=== PATIENT | female | born 1950 | race African-American/Black ===

== ENCOUNTER 2017-03-04 09:54 | Outpatient (CLI) | payer BC ==
[2017-03-04] MEDS ORDERED: Iopamidol 370 76% 50 ML VIAL FS ONE (13:11)
--- NOTE | 2017-03-04 13:46 | CT ---
ABDOMINAL CT WITH CONTRAST PELVIC CT WITH CONTRAST: Comparison: None. Correlation: Pelvic ultrasound 01-22-17. History: Distention of the abdomen. Abdominal pain and constipation. Technique: Abdomen and pelvic CT are performed with IV contrast. Enteric contrast was also administer ed. Coronal reformatted images are submitted for interpretation. FINDINGS: ABDOMEN CT: Lung bases are clear. Dependent atelectatic changes are noted. Heart size is within normal limits. Th ere is no significant pericardial fluid. The descending thoracic aorta and abdominal aorta have a nor mal caliber. No periaortic fat stranding. There appear to be enlarged pericardial lymph nodes. The largest lymph node measures 1.9 x 1.0 cm. There is perihepatic and perisplenic free fluid. Free fluid tracks along both pericolic gutters. Ther e appears to be omental feeding involving the left upper quadrant. There is no evidence of lymphadeno candis. There is hypoattenuation of the liver likely due to hepatic steatosis. The spleen, pancreas, and adre nal glands have appropriate enhancement. Symmetric enhancement of the kidneys. Bilaterally, no obstructive uropathy. No gastrohepatic, retrocrural or periportal lymphadenopathy. Gastric mucosa, duodenum and multiple normal caliber small bowel loops are noted. Normal ileocecal ju nction. Normal caliber appendix. No evidence of colonic obstruction. Limited evaluation of the left h emicolon due to inadequate oral contrast distention/opacification. PELVIC CT: There is a complex solid and cystic mass in the midline and right aspect of the pelvis. Areas of calc ification are identified. There is a well circumscribed hypodensity near the lower uterine segment. T he hypodensity near the lower uterine segment measures 3.9 x 3.5 cm. The pelvis/right adnexal mass me asures at least 13.2 x 10 cm. There is a small amount of free fluid in the pelvis. No lymphadenopathy. There are no lytic or blastic lesions in the osseous structures. IMPRESSION: 1. Complex echo texture mass involving the pelvis. Etiology of this mass is uncertain but is presumed to be ovarian. There is evidence of free fluid in the pelvis. Evidence of omental seeding. There is concern for ovarian malignancy, until proven otherwise. 2. Hepatic steatosis. 3. Nonspecific but enlarged pericardial lymph nodes. POS: [facility]
== END 2017-03-04 09:55 | disposition home or self-care (01) ==
LOC: CT 09:54
PROVIDERS: ATTEND Student in an Organized Health Care Education/Training Program
DX: R10.2 Pelvic and perineal pain (principal); R14.0 Abdominal distension (gaseous); R19.00 Intra-abdominal and pelvic swelling, mass and lump, unspecified site; K76.0 Fatty (change of) liver, not elsewhere classified; R59.0 Localized enlarged lymph nodes
CPT/HCPCS: 74177

== ENCOUNTER 2017-03-25 11:39 | Outpatient (CLI) | payer BC ==
[2017-03-25 12:23] LABS: #Basophils 0.1 thou/uL (0.0-0.2); #Eosinphils 0.2 thou/uL (0.0-0.7); #Lymphocytes 2.1 thou/uL (1.20-3.40); #Monocytes 0.7 thou/uL (0.11-0.59); #Neutrophils 4.2 thou/uL (1.40-6.50); %Basophils 1.2 % (0.0-1.0); %Eosinophils 2.6 % (0.0-10.0); %Monocytes 9.5 % (0.0-10.0); %Neutrophils 57.7 % (42.0-75.0); Hemoglobin 13.6 g/dL (12.0-16.0); Mean Corpuscular HGB CONC 32.4 g/dL (32.0-36.0); Mean Corpuscular Hemoglobin 26.6 pg (27.0-31.0); Mean Corpuscular Volume 81.9 fl (81.0-99.0); Mean Platelet Volume 7.8 fL (7.4-10.4); Platelet Count 460 thou/uL (130-400); RBC Distribution Width 14.1 % (11.5-14.5); Red Blood Cell (RBC) Count 5.11 mill/uL (4.20-5.40); White Blood Cell (WBC) Count 7.3 thou/uL (4.8-10.8)
[2017-03-25 15:18] LABS: Anion Gap 13 mmol/L (10-20); BUN (Urea Nitrogen) 16 mg/dL (9.8-20.1); Calc. Creatinine Clearance 0 mL/min (70-130); Calcium 9.6 mg/dL (7.8-10.44); Carbon Dioxide 27 mmol/L (23-31); Chloride 102 mmol/L (98-107); Estimated GFR-MDRD 73; Glucose 144 mg/dL (80-115); Potassium 3.4 mmol/L (3.5-5.1); Sodium 139 mmol/L (136-145)
--- NOTE | 2017-04-03 19:28 | EKG ---
Test Reason : Blood Pressure : / mmHG Vent. Rate : 082 BPM Atrial Rate : 082 BPM P-R Int : 142 ms QRS Dur : 092 ms QT Int : 364 ms P-R-T Axes : 043 042 -38 degrees QTc Int : 425 ms Normal sinus rhythm Cannot rule out Anterior infarct , age undetermined T wave abnormality, consider inferolateral ischemia Abnormal ECG No previous ECGs available Confirmed by SUSANNE BROWN (2) on 04/03/2017 7:28:23 PM Referred By: LIVIA Confirmed By:SUSANNE BROWN
== END 2017-03-25 11:40 | disposition home or self-care (01) ==
LOC: LABBT 11:39
PROVIDERS: ATTEND Surgery
DX: Z01.812 Encounter for preprocedural laboratory examination (principal); C56.9 Malignant neoplasm of unspecified ovary
CPT/HCPCS: 80048; 85025; 93005; 93010

== ENCOUNTER 2017-03-27 06:19 | Day surgery (SDC) | payer BC ==
[2017-03-25 11:45] VITALS: BMI 36.0
[2017-03-27] MEDS ORDERED: CEFAZOLIN/Water 2 GM/20 ML SYRINGE ONE (06:55)
[2017-03-27] MEDS ORDERED: Fentanyl 100 MCG/2 ML VIAL ONE (06:57)
[2017-03-27] MEDS ORDERED: PROPOFOL 40 ML ONE (07:03)
[2017-03-27] MEDS ORDERED: Lidocaine 2% w/Epinephrine 1:200K 20 ML VIAL ONE (07:05)
[2017-03-27] MEDS ORDERED: Bupivacaine 0.25% HCL 30 ML VIAL ONE (07:05)
--- NOTE | 2017-03-27 09:13 | RAD ---
PORTABLE CHEST ONE VIEW: Date: 03-27-17 Time: 8:41 a.m. History: Mediport placement. FINDINGS/IMPRESSION: Comparison is made with exam of 10-06-14. A left subclavian port-a-cath has been placed with the tip in the projection of the SVC. No pneumotho races, consolidation, or pleural effusions are seen. There is atelectasis in the left lower lung. POS: [facility]
[2017-03-27] MEDS ORDERED: Ondansetron HCl/PF 4 MG/2 ML Vial ONE (13:23)
[2017-03-27] MEDS ORDERED: PROPOFOL 200 MG/20 ML VIAL ONE (13:23)
[2017-03-27] MEDS ORDERED: Lidocaine 1% PF 5 ML VIAL ONE (13:23)
--- NOTE | 2017-04-02 17:09 | PDOC.OP ---
Operative Note - Operative Note Operative Note: PROCEDURE: Left subclavian MediPort placement with fluoroscopic guidance SURGEON: Justin Loo M.D. DATE OF PROCEDURE: 03/27/2017 PREOPERATIVE DIAGNOSIS: Ovarian cancer POSTOPERATIVE DIAGNOSIS: Ovarian cancer HISTORY: Patient is diagnosed with ovarian cancer. Chemotherapy has been recommended and the oncologist has requested MediPort placement for this. OPERATIVE PROCEDURE IN DETAIL: After informed consent was obtained and appropriate preoperative antibiotics were administered, the patient was taken to the operating room and placed in supine position and monitored anesthesia care was administered. The patient was then placed in Trendelenburg position and the subclavian vein accessed easily on the first attempt with excellent flow of dark venous non-pulsatile blood. A wire threaded easily and was confirmed to be in the superior vena cava by fluoroscopy. Additional local anesthesia was infused to the skin and subcutaneous tissues lateral and inferior to the access site. The skin incision was extended from the wire laterally and a subcutaneous pocket developed inferiorly. A Mediport was obtained and confirmed to fit in the subcutaneous pocket. This was secured inferiorly to the pectoralis fascia with a Prolene suture, which was clamped, but not tied. The dilator and sheath were then placed over the wire and the dilator and wire removed leaving the sheath in place. The clamped MediPort tubing was tunneled through the sheath, which was then split and removed leaving the MediPort tubing in place. The tubing was adjusted until the tip was confirmed by fluoroscopy to be in the superior vena cava just above the atrium. The tubing was clamped at the skin level and cut and the tubing secured to the port, which was then placed in the subcutaneous pocket. The previously placed suture was secured and two additional sutures were placed to fix the port in place within the pocket. The port was aspirated with the Estrada needle and had excellent flow of dark venous non-pulsatile blood and easily flushed without resistance. The subcutaneous tissues were closed with a running Monocryl suture, following which the skin was closed with a running subcuticular Monocryl suture. Dermabond dressings were placed and the hub was again accessed through the skin and confirmed to easily aspirate and easily flush. The course of the catheter was confirmed by fluoroscopy to be smooth with the tip appropriately located in the superior vena cava. The patient was taken her back to the day stay unit in good condition. Estimated blood loss was minimal. There were no complications. There were no specimens.
== END 2017-03-27 09:42 | disposition home or self-care (01) ==
LOC: SDC 06:19
PROVIDERS: ATTEND Surgery
PROC: 05H633Z Insertion of Infusion Device into Left Subclavian Vein, Percutaneous Approach (ICD-10-PCS; principal; 2017-03-27)
DX: C56.9 Malignant neoplasm of unspecified ovary (principal); Z79.899 Other long term (current) drug therapy; Z82.49 Family history of ischemic heart disease and other diseases of the circulatory system
CPT/HCPCS: 71045; C1788; J1642; J2001; J2405; J2704; J3010; S0020

== ENCOUNTER 2017-04-16 13:37 | Emergency (ER) | payer BC ==
--- NOTE | 2017-04-16 15:42 | CT ---
CT ARTERIOGRAM CHEST WITH IV CONTRAST AND 3D MIP IMAGIN04/16/17 HISTORY: Chest pain. Dyspnea. Ovarian cancer. FINDINGS: There is good contrast opacification of the pulmonary arteries and thoracic aorta with bovine origin of the great vessels from the aortic arch. Calcifications apparent within the arterial structures. Sc attered nonenlarged lymph nodes are present about the mediastinum. Small amount of pericardial fluid is apparent. There is atelectasis of the left base. Within the partially visualized upper abdomen, free fluid and slightly enlarged pericardial lymph nod e are apparent. IMPRESSION: No CT evidence of pulmonary embolus. POS: [facility]
== END 2017-04-16 16:35 | disposition home or self-care (01) ==
LOC: ERS 13:37
DX: R07.81 Pleurodynia (principal); E11.9 Type 2 diabetes mellitus without complications; I10 Essential (primary) hypertension; E78.00 Pure hypercholesterolemia, unspecified; M10.9 Gout, unspecified; Z79.52 Long term (current) use of systemic steroids; Z79.899 Other long term (current) drug therapy
CPT/HCPCS: 71275

== ENCOUNTER 2017-05-09 22:59 | Emergency (ER) | payer BC ==
--- NOTE | 2017-05-17 17:46 | EKG ---
Test Reason : Blood Pressure : / mmHG Vent. Rate : 098 BPM Atrial Rate : 098 BPM P-R Int : 120 ms QRS Dur : 084 ms QT Int : 376 ms P-R-T Axes : 037 030 033 degrees QTc Int : 480 ms Normal sinus rhythm Nonspecific T wave abnormality Prolonged QT Abnormal ECG Confirmed by SVETLANA RODRIGUEZ, AMAIRANI ([id number]), website/blog editor ANAHY SILVERMAN ([id number]) on 05/17/2017 5:46:00 PM Referred By: Confirmed By:AMAIRANI MOTA MD
== END 2017-05-10 00:31 | disposition home or self-care (01) ==
LOC: ERS 22:59
DX: E83.42 Hypomagnesemia (principal); E87.6 Hypokalemia; I10 Essential (primary) hypertension; E78.00 Pure hypercholesterolemia, unspecified; M10.9 Gout, unspecified; Z79.899 Other long term (current) drug therapy
CPT/HCPCS: 93005

== ENCOUNTER 2017-08-15 09:47 | Day surgery (SDC) | payer BC ==
[2017-08-15] MEDS ORDERED: Acetaminophen 500 MG TAB PO SCH (10:15)
[2017-08-15] MEDS ORDERED: diphenhydrAMINE 25 MG CAP PO SCH (10:15)
[2017-08-15] MEDS ORDERED: Sodium Chloride 0.9% 40 ML ONE (10:29)
[2017-08-15 12:49] VITALS: TEMP 97.7
[2017-08-15 13:47] VITALS: BP 129/75
[2017-08-15 14:03] LABS: Hemoglobin 9.1 g/dL (12.0-16.0)
== END 2017-08-15 14:41 | disposition home or self-care (01) ==
LOC: ONC/OP 09:47
PROVIDERS: ATTEND Internal Medicine Hematology & Oncology
PROC: 30233N1 Transfusion of Nonautologous Red Blood Cells into Peripheral Vein, Percutaneous Approach (ICD-10-PCS; principal; 2017-08-15)
DX: C56.9 Malignant neoplasm of unspecified ovary (principal); D63.0 Anemia in neoplastic disease; D69.6 Thrombocytopenia, unspecified; Z79.899 Other long term (current) drug therapy
CPT/HCPCS: 36430; 85014; 85018; 86850; 86900; 86901; A4216; J1642; P9016

== ENCOUNTER 2017-08-22 09:12 | Day surgery (SDC) | payer BC ==
[2017-08-22] MEDS ORDERED: diphenhydrAMINE 25 MG CAP PO SCH (09:30)
[2017-08-22] MEDS ORDERED: Acetaminophen 500 MG TAB PO SCH (09:30)
[2017-08-22] MEDS ORDERED: Sodium Chloride 0.9% 40 ML ONE (09:38)
[2017-08-22 14:10] LABS: #Lymphocytes 1.5 thou/uL (1.20-3.40); #Monocytes 0.4 thou/uL (0.11-0.59); #Neutrophils 1.6 thou/uL (1.40-6.50); %Basophils 0.7 % (0.0-1.0); %Eosinophils 0.1 % (0.0-10.0); %Lymphocytes 42.4 % (21.0-51.0); %Monocytes 11.2 % (0.0-10.0); %Neutrophils 45.6 % (42.0-75.0); Hemoglobin 10.7 g/dL (12.0-16.0); Mean Corpuscular HGB CONC 34.4 g/dL (32.0-36.0); Mean Corpuscular Hemoglobin 30.3 pg (27.0-31.0); Mean Corpuscular Volume 87.9 fl (81.0-99.0); Mean Platelet Volume 8.5 fL (7.4-10.4); Platelet Count 144 thou/uL (130-400); RBC Distribution Width 15.4 % (11.5-14.5); Red Blood Cell (RBC) Count 3.53 mill/uL (4.20-5.40); White Blood Cell (WBC) Count 3.6 thou/uL (4.8-10.8)
[2017-08-22 14:41] VITALS: BP 126/68; TEMP 97.9
== END 2017-08-22 19:16 | disposition home or self-care (01) ==
LOC: ONC/OP 09:12
PROVIDERS: ATTEND Internal Medicine Hematology & Oncology
DX: D64.9 Anemia, unspecified (principal); D69.6 Thrombocytopenia, unspecified
CPT/HCPCS: 36430; 85025; 86850; 86900; 86901; A4216; J1642; P9016

== ENCOUNTER 2017-10-01 11:28 | Day surgery (SDC) | payer BC ==
[2017-10-01] MEDS ORDERED: diphenhydrAMINE 25 MG CAP PO SCH (13:00)
[2017-10-01] MEDS ORDERED: Acetaminophen 500 MG TAB PO SCH (13:00)
[2017-10-01 18:40] VITALS: BP 99/52; TEMP 98.4
[2017-10-01 19:17] LABS: Hemoglobin 9.9 g/dL (12.0-16.0); Mean Corpuscular HGB CONC 34.8 g/dL (32.0-36.0); Mean Corpuscular Hemoglobin 30.4 pg (27.0-31.0); Mean Corpuscular Volume 87.4 fL (78.0-98.0); Platelet Count 143 thou/uL (130-400); RBC Distribution Width 15.3 % (11.5-14.5); Red Blood Cell (RBC) Count 3.26 mill/uL (4.20-5.40); White Blood Cell (WBC) Count 4.8 thou/uL (4.8-10.8)
[2017-10-01 19:39] LABS: Anisocytosis SLIGHT = 6-15 cells (100X) (0-5/hpf); Band 4 % (5-11); Lymphocytes 47 % (21-51); MDiff Complete? YES; Monocytes 7 % (0-10); Neutrophil 42 % (42-75); Nucleated RBC 1 % (0); Ovalocytes SLIGHT = 2-5 cells (100X) (0-1/hpf); PLT Morphology Comment Appears Adequate; Polychromasia SLIGHT = 2-3 cells (100X) (0-2/hpf)
== END 2017-10-01 19:06 | disposition home or self-care (01) ==
LOC: ONC/OP 11:28
PROVIDERS: ATTEND Internal Medicine Hematology & Oncology
DX: D64.9 Anemia, unspecified (principal); D69.49 Other primary thrombocytopenia
CPT/HCPCS: 36415; 36430; 85025; 86850; 86900; 86901; P9016

== ENCOUNTER 2018-04-27 10:18 | Outpatient (CLI) | payer BC ==
--- NOTE | 2018-04-27 13:23 | CT ---
CT OF ABDOMEN AND PELVIS PERFORMED WITH INTRAVENOUS CONTRAST ENHANCEMENT: History: Patient with a history of ovarian carcinoma. History of chemotherapy which has just been com pletely. Comparison: CT chest 04-16-17, CT abdomen and pelvis, 03-04-17. FINDINGS: The lung bases show some chronic interstitial change. The liver shows a slightly oblong shaped fluid density collection along the surface of the dome of th e liver. It measures approximately 4.6 x 3.5 cm in size. It was not present on either of the prior ex aminations. No intrinsic masses of the liver. The spleen is within normal limits of size. The pancrea s and gallbladder regions appear unremarkable. Right and left adrenal glands and right and left kidneys are normal in size. There are some left daniel aortic lymph nodes which are slightly more prominent than on the previous study. One of these nodes w hich was just slightly superior to the level of the left renal vein measures 13 mm as opposed to 2-3 mm on the prior study. Also, a left periaortic node seen on axial image 41 measures 10-11 mm in short axis dimension as opposed to approximately 4 mm on the prior study. The peritoneal implants which we re most visible in the left upper quadrant are less prominent than on the prior study and the ascites has almost completely resolved. CT OF PELVIS PERFORMED WITH INTRAVENOUS CONTRAST ENHANCEMENT: Left ovarian mass is significantly reduced in size. It measured approximately 10 x 13 mm in size. The re is now a regular soft tissue density in this region measuring approximately 4 x 6 cm in maximum le ngth. There is some dilatation of some of the small bowel loops which are drawn into this area. I am not certain if this residual soft tissue density represents scar or residual tumor causing mild parti al small bowel obstruction with some of the small bowel loops drawn into the fibrotic appearing area. There is thickening along the right pericolic gutter, peritoneal lining. The uterus is absent. No si gnificant pelvic lymphadenopathy is appreciated. There are pericardial lymph nodes noted on the previous study. Some of these are stable in size measu ring 8-9 mm range. One of the larger nodes which measure 1.9 cm in maximum dimension which is more al norma the right hemidiaphragm, significantly decreased in size measuring 7 mm on the current study. IMPRESSION: 1. The left ovarian mass is significantly reduced in size. There is an irregularly shaped soft tissue density measuring approximately 4-5 cm in size now present in this area. This could represent residu al tumor or just fibrotic scar. It is drawing some of the small bowel loops into this area and is cau sing a partial obstruction of some of these small bowel loops which are dilated, probably related to scarring or fibrotic response. 2. There is a definite interval reduction in the appearance of a peritoneal implants and reduction of ascites. 3. Development of a slightly oblong shape fluid density collection along the dome of the liver not pr esent on the prior examination. This could represent some type of loculated fluid collection or possi mu a small subcapsular hematoma but I do not have a cause for this. Peritoneal implant would be anot her possibility but given the reduction in the other areas within the peritoneum it would be somewhat less likely. This does warrant follow up. 4. Interval reduction in the size of the pericardial lymph nodes. 5. Interval increase in size of some periaortic lymph nodes which could possibly just be reactive in nature but also does warrant follow up. 6. Slight increase in size of some of the left inguinal lymph nodes also incidentally noted. POS: [facility]
[2018-04-27] MEDS ORDERED: Iopamidol 370 76% 100 ML VIAL ONE (16:59)
== END 2018-04-27 10:19 | disposition home or self-care (01) ==
LOC: CT 10:18
PROVIDERS: ATTEND Internal Medicine Hematology & Oncology
DX: C56.1 Malignant neoplasm of right ovary (principal); D70.1 Agranulocytosis secondary to cancer chemotherapy; R18.8 Other ascites; K59.8 Other specified functional intestinal disorders; R59.0 Localized enlarged lymph nodes; R93.2 Abnormal findings on diagnostic imaging of liver and biliary tract; Z96.0 Presence of urogenital implants
CPT/HCPCS: 36415; 74177; 80053; 82565; 85025; 86304; Q9967

== ENCOUNTER 2018-06-29 16:55 | Inpatient (IN) | payer MEDICARE, BC ==
[2018-06-29] MEDS ORDERED: Enoxaparin Sodium 80 MG/0.8 ML SYRINGE ONE (18:50)
[2018-06-29 19:01] LABS: Hemoglobin 11.1 g/dL (12.0-16.0); Mean Corpuscular HGB CONC 32.5 g/dL (32.0-36.0); Mean Corpuscular Hemoglobin 28.5 pg (27.0-31.0); Mean Corpuscular Volume 87.5 fL (78.0-98.0); Mean Platelet Volume 7.8 fL (7.4-10.4); Platelet Count 298 thou/uL (130-400); RBC Distribution Width 17.8 % (11.5-14.5); Red Blood Cell (RBC) Count 3.88 mill/uL (4.20-5.40); White Blood Cell (WBC) Count 7.8 thou/uL (4.8-10.8)
[2018-06-29 19:20] LABS: Band 8 % (5-11); Eosinophils 2 % (0-10); Lymphocytes 23 % (21-51); MDiff Complete? YES; Monocytes 21 % (0-10); Neutrophil 46 % (42-75); Ovalocytes SLIGHT = 2-5 cells (100X) (0-1/hpf); Platelet Morphology Comment Appears Adequate; Polychromasia SLIGHT = 2-3 cells (100X) (0-2/hpf)
[2018-06-29 19:22] LABS: ALT (SGPT) 8 U/L (8-55); AST (SGOT) 15 U/L (5-34); Albumin 3.5 g/dL (3.4-4.8); Alkaline Phosphatase 80 U/L (40-150); Anion Gap 14 mmol/L (10-20); BUN (Urea Nitrogen) 8 mg/dL (9.8-20.1); Bilirubin, Total 0.4 mg/dL (0.2-1.2); Calc. Creatinine Clearance 0 mL/min (70-130); Carbon Dioxide 26 mmol/L (23-31); Chloride 103 mmol/L (98-107); Estimated GFR-MDRD Greater than 90; Globulin 2.8 g/dL (2.4-3.5); Glucose 93 mg/dL (80-115); Potassium 3.5 mmol/L (3.5-5.1); Protein, Total 6.3 g/dL (6.0-8.3); Sodium 139 mmol/L (136-145)
--- NOTE | 2018-06-30 | HP ---
PRIMARY CARE PHYSICIAN: [facility] Call admission. REASON FOR ADMISSION: Acute pulmonary embolism. HISTORY OF PRESENT ILLNESS: A 67-year-old female who has underlying history of ovarian malignancy. She was treated with surgery last year and she was receiving chemotherapy through Dr. Cabrera. The patient was complaining of right-sided pleuritic chest pain for last 3 to 4 days and that is why Dr. Cabrera ordered CT angiography which showed right-sided pulmonary embolism. The patient was transferred to emergency room and subsequently, the patient is being admitted to the hospital for anticoagulation therapy. This patient denies any dizziness or syncope, but she reports shortness of breath and fatigue. She denies any lower extremity edema or swelling. She denies any immobilization. She denies any fever or chills. She denies any hemoptysis. She denies any black tarry stool or any hematochezia. The patient did not receive chemotherapy because the patient was complaining of chest pain. REVIEW OF SYSTEMS: CONSTITUTIONAL: Negative for weight loss or gain, ability to conduct usual activities. SKIN: Negative for rash, itching. EYES: Negative for double vision, pain. ENT/MOUTH: Negative for nose bleeding, neck stiffness, pain, tenderness. CARDIOVASCULAR: Negative for palpitations, dyspnea on exertion, orthopnea. RESPIRATORY: Negative for shortness of breath, wheezing, cough, hemoptysis, fever or night sweats. GASTROINTESTINAL: Negative for poor appetite, abdominal pain, heartburn, nausea , vomiting, constipation, or diarrhea. GENITOURINARY: Negative for urgency, frequency, dysuria, nocturia. MUSCULOSKELETAL: Negative for pain, swelling. NEUROLOGIC/PSYCHIATRIC: Negative for anxiety, depression. ALLERGY/IMMUNOLOGIC: Negative for skin rash, bleeding tendency. Please see my HPI for pertinent positive and negative. All other review of systems reviewed and negative except as mentioned in HPI. PAST MEDICAL HISTORY: Hypertension, ovarian malignancy, gout, asthma. PAST SURGICAL HISTORY: MediPort placement on left chest, ovarian biopsy, ovarian surgery. PAST PSYCHIATRIC HISTORY: Anxiety and depression. SOCIAL HISTORY: The patient is , lives at home with her . No history of tobacco, alcohol, or illicit drug abuse. FAMILY HISTORY: No family history of coronary artery disease, stroke, or cancer. ALLERGIES: NO KNOWN DRUG ALLERGIES. CURRENT HOME MEDICATIONS: 1. Atenolol 25 mg 2 tablet daily. 2. Losartan with hydrochlorothiazide 100/25 half tablet daily. 3. Amlodipine 10 mg daily. 4. Promethazine p.r.n. basis. EMERGENCY ROOM COURSE: The patient has received Lovenox 1 mg/kg. PHYSICAL EXAMINATION: VITAL SIGNS: On arrival, blood pressure 136/88, pulse 20, temperature 98.2, saturation 94% on room air. Weight 79.3 kg. GENERAL: The patient is currently alert, awake, in no obvious acute distress. HEENT: Head; normocephalic, atraumatic. Eyes; pupils round, reactive to light. Extraocular muscle intact. ENT, oropharynx within normal limits. Moist mucous membranes. No oral lesion. No pharyngeal erythema. No exudate. NECK: Supple. No JVD. No thyromegaly. No carotid bruit. No jugular venous distention. LUNGS: Clear to auscultation without any rhonchi or rales. CARDIAC: S1 and S2 regular. No murmur. No gallop. No rub. ABDOMEN: Soft. Bowel sounds present. Nontender. Nondistended. No organomegaly. No mass. No suprapubic tenderness. BACK: Unremarkable. No CVA tenderness. EXTREMITIES: Upper extremities; passive movement of all joints are normal. Lower extremity, no edema. No calf tenderness. Good distal pulsation. SKIN: No skin rash,. HEMATOLOGICAL: No lymphadenopathy. PSYCHIATRIC: Normal affect. SIGNIFICANT LABORATORY DATA: EKG showing normal sinus rhythm without any acute ischemic changes. CT angiography based on my review, the patient has large pulmonary embolism in distal right main pulmonary artery extending into right middle lobe and right lower lobe. There is associated consolidation of the right lung base consistent with infarction. Some reactive moderate right pleural effusion noted. CBC; WBC 7.8, hemoglobin 11.1, platelets 298. BMP; sodium 139, potassium 3.5, chloride 103, carbon dioxide 26, BUN 8, creatinine 0.74, glucose 93, calcium 8.0. LFTs; AST 15, ALT 8, alkaline phosphatase 80, albumin 3.5. Troponin less than 0.010. BNP 51.2. ASSESSMENT AND PLAN: 1. Acute right-sided pulmonary embolism with pulmonary infarction as well as reactive right pleural effusion. The patient has underlying active malignancy. The patient is receiving chemotherapy. The patient will need Lovenox 1 mg/kg subcu twice daily. We will check stool for guaiac to rule out any occult bleeding. We will monitor H and H, creatinine, and PT/INR every other day. Because of active malignancy, the patient will need Lovenox therapy upon discharge. We will consult Oncology for their opinion as well. We will also obtain bilateral lower extremity ultrasound to rule out any associated deep vein thrombosis. 2. Ovarian malignancy status post surgery and chemotherapy. The patient will be consulted by Oncology while in hospital. 3. Anemia of chronic disease, likely due to underlying cancer. 4. Hypertension. We will resume the patient's home medication atenolol, losartan with hydrochlorothiazide, and amlodipine. 5. Generalized weakness. PT/OT will be consulted while in hospital. 6. DVT prophylaxis. The patient is already on full dose of Lovenox therapy. 7. GI prophylaxis. Pepcid 20 mg p.o. b.i.d. 8. Anxiety and depression. We will continue Zoloft after verification of her home dose. CODE STATUS: The patient is DNR. The patient expressed her wish to not to be resuscitated in case of cardiopulmonary arrest. The patient's is surrogate decision maker. DISPOSITION PLAN: Based on clinical course, we are expecting the patient's stay in hospital more than 2 midnights. Plan of care discussed with the patient in detail. Job ID: [id number] [facility]
[2018-06-30] MEDS ORDERED: hydrALAZINE 20 MG/ML VIAL SLOW IVP PRN (01:37)
[2018-06-30] MEDS ORDERED: Cepastat Lozenges 1 LOZ PO PRN (01:37)
[2018-06-30] MEDS ORDERED: Diabetic Tussin 200 MG/10 ML UDCUP PO PRN (01:37)
[2018-06-30] MEDS ORDERED: Ondansetron ODT 4 MG TAB PO PRN (01:37)
[2018-06-30] MEDS ORDERED: Zolpidem Tartrate 5 MG TAB PO PRN (01:37)
[2018-06-30] MEDS ORDERED: Acetaminophen 325 MG TAB PO PRN (01:37)
[2018-06-30] MEDS ORDERED: Sodium Chloride 0.65% Nasal 44 ML BOT EA NARE PRN (01:37)
[2018-06-30] MEDS ORDERED: Calcium Carbonate 500 MG ChewTAB PO PRN (01:37)
[2018-06-30] MEDS ORDERED: Ondansetron PF 4 MG/2 ML Vial IVP PRN (01:37)
[2018-06-30] MEDS ORDERED: Artificial Tears 18 DROP/0.9 ML EA EYE PRN (01:37)
[2018-06-30] MEDS ORDERED: Loperamide HCl 2 MG CAP PO PRN (01:37)
[2018-06-30] MEDS ORDERED: Loratadine 10 MG TAB PO PRN (01:37)
[2018-06-30] MEDS ORDERED: Eucerin (Mineral Oil/Petrolatum,White) 30 gm Jar TOP PRN (01:37)
[2018-06-30] MEDS: HYDROcodone/Acetaminophen 5/325 mg Tablet PO PRN ×2 (02:11→09:59)
[2018-06-30 02:22] VITALS: BMI 31.9
[2018-06-30 07:01] LABS: INR-International Normal Ratio 1.2; Prothrombin Time 15.4 SEC (12.0-14.7)
[2018-06-30 07:03] LABS: Hemoglobin 9.7 g/dL (12.0-16.0); Mean Corpuscular HGB CONC 32.7 g/dL (32.0-36.0); Mean Corpuscular Hemoglobin 28.5 pg (27.0-31.0); Mean Corpuscular Volume 87.4 fL (78.0-98.0); Mean Platelet Volume 8.2 fL (7.4-10.4); Platelet Count 282 thou/uL (130-400); RBC Distribution Width 17.6 % (11.5-14.5); White Blood Cell (WBC) Count 5.9 thou/uL (4.8-10.8)
[2018-06-30 07:15] LABS: ALT (SGPT) 8 U/L (8-55); AST (SGOT) 14 U/L (5-34); Alkaline Phosphatase 66 U/L (40-150); Anion Gap 12 mmol/L (10-20); BUN (Urea Nitrogen) 7 mg/dL (9.8-20.1); Bilirubin, Total 0.4 mg/dL (0.2-1.2); Calc. Creatinine Clearance 99 mL/min (70-130); Carbon Dioxide 25 mmol/L (23-31); Chloride 105 mmol/L (98-107); Estimated GFR-MDRD Greater than 90; Globulin 3.2 g/dL (2.4-3.5); Glucose 89 mg/dL (80-115); Potassium 3.2 mmol/L (3.5-5.1); Protein, Total 6.2 g/dL (6.0-8.3); Sodium 139 mmol/L (136-145)
--- NOTE | 2018-06-30 07:44 | ULT ---
ULTRASOUND WITH DOPPLER DUPLEX VENOUS LOWER EXTREMITY BILATERAL: Date: 06/30/18 CPT: 11518 ICD-10-PCS: B54D INDICATION: History of pulmonary embolus, edema. TECHNIQUE: Color flow Doppler, spectral waveform analysis of pulsed Doppler, and hughes-scale imaging with lake ronn and augmentation, were used to evaluate the bilateral common femoral, femoral, popliteal, fire watcher ior tibial, and superficial femoral, veins; and the proximal portions of the profunda femoral and gre ater saphenous, veins. FINDINGS: No evidence of deep vein thrombosis of the imaged right lower extremity. Within the left lower extremity, involving the popliteal vein, there is increased intraluminal echoge nicity with diminished flow and limited compressibility compatible with deep vein thrombus. Remaining deep vein structures of the left lower extremity are patent. IMPRESSION: Deep venous thrombosis of the left popliteal vein, partially occlusive. Notification placed to the patient's nurse, Lizette, at the time of exam, 0550 hours on 06/30/18. CODE CR. POS: [facility]
[2018-06-30 08:12] LABS: Band 9 % (5-11); Eosinophils 1 % (0-10); Lymphocytes 33 % (21-51); MDiff Complete? YES; Monocytes 20 % (0-10); Neutrophil 35 % (42-75); Ovalocytes SLIGHT = 2-5 cells (100X) (0-1/hpf); Polychromasia SLIGHT = 2-3 cells (100X) (0-2/hpf); Reactive Lymphocytes 2 % (0-10)
[2018-06-30 09:07] LABS: Bilirubin Negative (Negative); Blood, Urine Negative (Negative); Clarity CLEAR (Clear); Glucose, Urine (Dipstick) Negative (Negative); Leukocyte Moderate (Negative); Nitrite Negative (Negative); Protein, Urine (Dipstick) Negative (Neg-Trace); Specific Gravity, Urine 1.037 (1.002-1.036); pH, Urine 5.5 (5.0-9.0)
[2018-06-30 09:10] LABS: Bacteria/HPF None Seen HPF (None Seen); Hyaline Casts/LPF 0-3 HYALINE CAST LPF (0-3 Hyaline); Pathc Cast-AUWi Flag 0.27 (0-2.49); RBC/HPF 0-3 HPF (0-3); Squamous Epithelial 0-3 HPF (0-3)
[2018-06-30] MEDS: Famotidine 20 MG TAB PO SCH ×2 (09:56→20:40)
[2018-06-30] MEDS: Amlodipine 5 MG TAB PO SCH ×2 (09:56→20:37)
[2018-06-30] MEDS: cefTRIAXone\\ROCEPHIN 1 GM in Sodium Chloride 0.9% 100 ML IVPB SCH (10:11)
[2018-06-30] MEDS: Enoxaparin Sodium 80 MG/0.8 ML SYRINGE SC SCH ×2 (10:12→20:38)
[2018-06-30] MEDS: Atenolol 50 MG TAB PO SCH (20:37)
--- NOTE | 2018-06-30 22:08 | PDOC.PN ---
- Subjective Encounter Start Date: 06/30/18 Encounter Start Time: 11:00 Patient seen and examined for PE/DVT. No CP. SOB improving. No new complaints. No overnight events - Objective Resuscitation Status - Order Detail: 06/29/18 23:02 Resuscitation Status Routine Resuscitation Status: DNAR: NO Resuscitation Discussed with: discussed with pt and confirmed MAR Reviewed: Yes Vital Signs & Weight: Vital Signs (12 hours) Temp Pulse Resp BP BP BP Pulse Ox 06/30/18 20:37 120 H 140/91 H 06/30/18 19:42 100.7 F H 120 H 18 140/91 H 92 L 06/30/18 17:13 97.9 F 100 18 149/75 H 92 L 06/30/18 12:43 98.1 F 105 H 18 129/69 91 L Weight Weight 174 lb 9.6 oz Result Diagrams: 06/30/18 06:27 06/30/18 06:27 Radiology Reviewed by me: Yes (CTA - PE) EKG Reviewed by me: Yes (SR) Phys Exam - Physical Examination Constitutional: NAD Neck: no JVD Respiratory: no wheezing, no rales, clear to auscultation bilateral Scat rhonchi at bases Cardiovascular: RRR, no rub no heaves/pulsations Gastrointestinal: soft, non-tender, no distention, positive bowel sounds Musculoskeletal: no edema, pulses present Neurological: non-focal, normal sensation, moves all 4 limbs Psychiatric: normal affect, A&O x 3 Skin: no rash Dx/Plan - Plan 1. PE/LLE DVT 2. Gen weakness - multifactorial 3. HTN 4. UTI 5. Hypokalemia 6. h/o Ovarian Ca PLAN: Cont Lovenox Echo Add Ceftriaxone for UTI Urine cultures before Atbx Resume Amlodipine/Atenolol Hold HCTZ for now AM labs Troponins/BNP normal Replace Potassium Review of Systems - Review of Systems Constitutional: negative: fever, chills, sweats, weakness, malaise, other Gastrointestinal: negative: Nausea, Vomiting, Abdominal Pain, Diarrhea, Constipation, Melena, Hematochezia, Other - Medications/Allergies Allergies/Adverse Reactions: Allergies Allergy/AdvReac Type Severity Reaction Status Date / Time No Known Allergies Allergy Unverified 03/25/17 11:41 Medications: Current Medications Acetaminophen (Tylenol) 650 mg PO Q4H PRN PRN Reason: Headache/Fever/Mild Pain (1-3) Last Admin: 06/30/18 19:59 Dose: 650 mg Hydrocodone Bitart/Acetaminophen ([place] 5/325) 1 tab PO Q4H PRN PRN Reason: Moderate Pain (4-6) Last Admin: 06/30/18 09:59 Dose: 1 tab Amlodipine Besylate (Norvasc) 5 mg PO BID [facility] Last Admin: 06/30/18 20:37 Dose: 5 mg Artificial Tears (Tears Naturale) 2 drop EA EYE PRN PRN PRN Reason: Dry Eyes Atenolol (Tenormin) 50 mg PO HS [facility] Last Admin: 06/30/18 20:37 Dose: 50 mg Bisacodyl (Dulcolax) 10 mg PO DAILYPRN PRN PRN Reason: Constipation Calcium Carbonate (Tums) 1,000 mg PO Q4H PRN PRN Reason: Heartburn or Indigestion Enoxaparin Sodium (Lovenox) 80 mg SC 0900,2100 [facility] Last Admin: 06/30/18 20:38 Dose: 80 mg Famotidine (Pepcid) 20 mg PO BID [facility] Last Admin: 06/30/18 20:40 Dose: 20 mg Guaifenesin (Robitussin Sf) 200 mg PO Q4H PRN PRN Reason: Cough Hydralazine HCl (Apresoline) 10 mg SLOW IVP Q4H PRN PRN Reason: SBP > 180 and HR < 70 Ceftriaxone Sodium 1 gm/ (Sodium Chloride) 100 mls @ 200 mls/hr IVPB Q24HR [facility] Last Admin: 06/30/18 10:11 Dose: 100 mls Loperamide HCl (Imodium) 2 mg PO PRN PRN PRN Reason: Diarrhea/Loose Stools Loratadine (Claritin) 10 mg PO DAILYPRN PRN PRN Reason: Sinus Symptoms Mineral Oil/White Petrolatum (Eucerin Cream) 0 gm TOP BIDPRN PRN PRN Reason: Dry Skin Ondansetron HCl (Zofran Odt) 4 mg PO Q6H PRN PRN Reason: Nausea/Vomiting Ondansetron HCl (Zofran) 4 mg IVP Q6H PRN PRN Reason: Nausea/Vomiting Senna/Docusate Sodium (Senokot S) 2 tab PO BID PRN PRN Reason: Constipation Sodium Chloride ([place] Nasal [place] 0.65%) 0 ml EA NARE QIDPRN PRN PRN Reason: Nasal Congestion Sodium Chloride (Flush - Normal Saline) 10 ml IVF Q12HR [facility] Last Admin: 06/30/18 20:41 Dose: 10 ml Sodium Chloride (Flush - Normal Saline) 10 ml IVF PRN PRN PRN Reason: Saline Flush Throat Lozenges (Cepastat Lozenges) 1 leora PO Q2H PRN PRN Reason: Sore Throat Tramadol HCl (Ultram) 50 mg PO Q6H PRN PRN Reason: Pain Zolpidem Tartrate (Ambien) 5 mg PO HSPRN PRN PRN Reason: Insomnia
[2018-06-30] MEDS: Bisacodyl 5 MG TAB PO PRN (23:38)
[2018-07-01 04:33] LABS: ALT (SGPT) 10 U/L (8-55); AST (SGOT) 29 U/L (5-34); Alkaline Phosphatase 77 U/L (40-150); Anion Gap 10 mmol/L (10-20); BUN (Urea Nitrogen) 7 mg/dL (9.8-20.1); Bilirubin, Total 0.3 mg/dL (0.2-1.2); Calc. Creatinine Clearance 93 mL/min (70-130); Calcium 8.4 mg/dL (7.8-10.44); Carbon Dioxide 28 mmol/L (23-31); Chloride 104 mmol/L (98-107); Estimated GFR-MDRD Greater than 90; Globulin 3.5 g/dL (2.4-3.5); Glucose 91 mg/dL (80-115); Protein, Total 6.5 g/dL (6.0-8.3); Sodium 139 mmol/L (136-145)
[2018-07-01 04:58] LABS: Hemoglobin 10.6 g/dL (12.0-16.0); Hypochromia SLIGHT = 6-15 cells (100X) (0-5/hpf); Lymphocytes 14 % (21-51); MDiff Complete? YES; Mean Corpuscular HGB CONC 32.3 g/dL (32.0-36.0); Mean Corpuscular Hemoglobin 28.5 pg (27.0-31.0); Mean Corpuscular Volume 88.1 fL (78.0-98.0); Mean Platelet Volume 7.9 fL (7.4-10.4); Monocytes 24 % (0-10); Neutrophil 62 % (42-75); Platelet Count 315 thou/uL (130-400); Platelet Morphology Comment Appears Adequate; RBC Distribution Width 17.7 % (11.5-14.5); Red Blood Cell (RBC) Count 3.71 mill/uL (4.20-5.40)
--- NOTE | 2018-07-01 07:38 | CON ---
DATE OF CONSULTATION: 06/30/2018 HISTORY OF PRESENT ILLNESS: Ms. Knight is a 67-year-old female with metastatic ovarian cancer, carboplatin resistant, currently receiving Doxil and Avastin palliative chemotherapy. She presented to my office for routine treatment yesterday, but complained of one week of increasing shortness of breath as well as right-sided pleurisy. She also complained of being weakened, fatigued, and constipated. She, instead of treatment, was given IV fluids and antiemetics because she complained of nausea. A CT angiogram was ordered and was done yesterday, which showed a large right-sided pulmonary embolism with a pulmonary infarct of the right lung. She was admitted through the emergency room because there appear to be right heart strain on the CT angiogram. She has now been on Lovenox for 12 hours and she says her breathing is stable. She denies any hemoptysis. She continues to have right-sided pleuritic chest pain. She is interested in going home fairly soon. She states her shortness of breath is stable, but a bit worse when she gets up and ambulates. PAST MEDICAL HISTORY: 1. Metastatic ovarian cancer. 2. Hypertension, probably exacerbated by Avastin. 3. Gout. 4. Possible asthma. CURRENT MEDICATIONS: 1. Tylenol p.r.n. 2. [place] p.r.n. 3. Dulcolax 10 mg p.o. daily. 4. Tums p.r.n. 5. Lovenox 80 mg subcutaneous q.12 hours. 6. Pepcid 20 mg p.o. b.i.d. 7. Robitussin 200 mg p.o. q.4 hours p.r.n. 8. Hydralazine p.r.n. 9. Imodium 2 mg p.o. q.2 hours p.r.n. 10. Claritin 10 mg p.o. daily p.r.n. 11. Zofran ODT 4 mg p.o. q.6 hours p.r.n. 12. Zofran 4 mg IV q.6 hours p.r.n. 13. Senokot 2 tablets p.o. b.i.d. p.r.n. 14. [place] nasal spray. 15. Cepastat lozenges. 16. Ambien 5 mg p.o. q.h.s. p.r.n. ALLERGIES: NO KNOWN DRUG ALLERGIES. SOCIAL HISTORY: She denies tobacco or alcohol use. She is here with her , who is quite supportive. She is also here with her son, who is quite supportive, who is in [place] currently. FAMILY HISTORY: Negative for any ovarian malignancies or blood clotting. PHYSICAL EXAMINATION: VITAL SIGNS: Temperature 97.8, pulse 92, O2 saturation 94% on room air, blood pressure 131/71, but last night, it was 192/88. GENERAL: She is alert, awake, oriented x3, quite pleasant, in no acute distress. HEENT: Extraocular muscles are intact. Pupils are reactive to light. She has no oral cavity lesions. NECK: Supple without lymphadenopathy. CARDIOVASCULAR: Regular rhythm, but tachy. LUNGS: Clear to auscultation bilaterally. She does have pleurisy on the right with deep breath. ABDOMEN: Hypoactive bowel sounds. Soft, nontender, nondistended. EXTREMITIES: No significant edema bilaterally. LABORATORY DATA: White blood cell count 5.9, hemoglobin 9.7, platelets 282. Sodium 139, potassium 3.2, chloride 105, CO2 of 25, BUN 7, creatinine 0.7, glucose 89, calcium 8.0, total bilirubin 0.4, total protein 6.2, albumin 3.0. INR 1.2. DIAGNOSTIC DATA: CT angiogram done as an outpatient prior to the admission shows large thrombus in distal right main pulmonary artery extending to the right middle lobe and right lower lobe segmental branches with consolidation in the right lung base likely reflecting infarction. There is a reactive moderate right pleural effusion. Venogram done of the bilateral lower extremities on June 30, 2018, shows deep venous thrombosis of the left popliteal vein, partially occlusive. ASSESSMENT: Ms. Knight is a 67-year-old female with: 1. Metastatic ovarian cancer, relapsing. Carboplatin resistant. Currently, on treatment. 2. Right pulmonary artery pulmonary embolism with left popliteal vein deep venous thrombosis. 3. Shortness of breath and pleurisy secondary to pulmonary infarction. PLAN: 1. She is already on Lovenox, I would recommend transitioning her to Eliquis or Xarelto. 2. I would recommend echocardiogram to assess her cardiac function. 3. Hopefully, she can go home in the next 24 to 48 hours depending on the results of the echo. 4. We will follow with you. Job ID: [id number]
[2018-07-01] MEDS: Enoxaparin Sodium 80 MG/0.8 ML SYRINGE SC SCH ×2 (09:00→20:19)
[2018-07-01] MEDS: cefTRIAXone\\ROCEPHIN 1 GM in Sodium Chloride 0.9% 100 ML IVPB SCH (09:01)
[2018-07-01] MEDS: Amlodipine 5 MG TAB PO SCH ×2 (09:01→20:18)
[2018-07-01] MEDS: Famotidine 20 MG TAB PO SCH ×2 (09:01→20:20)
[2018-07-01] MEDS: HYDROcodone/Acetaminophen 5/325 mg Tablet PO PRN (10:23)
--- NOTE | 2018-07-01 12:46 | PDOC.PN ---
- Subjective Encounter Start Date: 07/01/18 Encounter Start Time: 07:00 -: old records requested/rev Patient seen and examined. No new complaints. No overnight events pt has weakness - Objective Resuscitation Status - Order Detail: 06/29/18 23:02 Resuscitation Status Routine Resuscitation Status: DNAR: NO Resuscitation Discussed with: discussed with pt and confirmed MAR Reviewed: Yes Vital Signs & Weight: Vital Signs (12 hours) Temp Pulse Resp BP BP BP Pulse Ox 07/01/18 12:00 98.1 F 78 18 112/58 L 94 L 07/01/18 09:01 83 133/70 07/01/18 08:10 99.2 F 83 18 133/70 93 L 07/01/18 04:00 93 L 07/01/18 03:00 98.2 F 82 18 117/64 93 L Weight Weight 174 lb 9.6 oz I&O: 06/30/18 07/01/18 07/02/18 06:59 06:59 06:59 Intake Total 120 Output Total 200 Balance -80 Result Diagrams: 07/01/18 04:08 07/01/18 04:08 Phys Exam - Physical Examination Constitutional: NAD HEENT: PERRLA, moist MMs, sclera anicteric Neck: no JVD, supple Respiratory: no wheezing, no rales, no rhonchi Cardiovascular: RRR, no significant murmur, no rub Gastrointestinal: soft, non-tender, no distention, positive bowel sounds Musculoskeletal: no edema, pulses present Neurological: non-focal, normal sensation, moves all 4 limbs Lymphatic: no nodes Psychiatric: normal affect, A&O x 3 Skin: no rash, normal turgor Dx/Plan (1) Deep vein thrombosis (DVT) of popliteal vein of left lower extremity Code(s): I82.432 - ACUTE EMBOLISM AND THROMBOSIS OF LEFT POPLITEAL VEIN Status : Acute (2) Hypokalemia Code(s): E87.6 - HYPOKALEMIA Status: Acute (3) Pulmonary embolism Code(s): I26.99 - OTHER PULMONARY EMBOLISM WITHOUT ACUTE COR PULMONALE Status : Acute (4) UTI (urinary tract infection) Status: Acute (5) Anemia, normocytic normochromic Code(s): D64.9 - ANEMIA, UNSPECIFIED Status: Chronic (6) Hypertension Code(s): I10 - ESSENTIAL (PRIMARY) HYPERTENSION Status: Chronic (7) Obesity (BMI 30.0-34.9) Code(s): E66.9 - OBESITY, UNSPECIFIED Status: Chronic (8) Ovarian cancer Status: Chronic - Plan cont current plan of care, PT/OT * continue lovenox * as per oncology NOAC on discharge * continue PT today * continue rocephin, so far culture negative * medication reviewed as below * symptomatic treatment. * expecting discharge soon Review of Systems - Review of Systems Constitutional: weakness. negative: fever, chills, sweats, malaise, other ENT: negative: Ear Pain, Ear Discharge, Nose Pain, Nose Discharge, Nose Congestion, Mouth Pain, Mouth Swelling, Throat Pain, Throat Swelling, Other Respiratory: negative: Cough, Dry, Shortness of Breath, Hemoptysis, SOB with Excertion, Pleuritic Pain, Sputum, Wheezing Cardiovascular: negative: chest pain, palpitations, orthopnea, paroxysmal nocturnal dyspnea, edema, light headedness, other Gastrointestinal: negative: Nausea, Vomiting, Abdominal Pain, Diarrhea, Constipation, Melena, Hematochezia, Other Genitourinary: negative: Dysuria, Frequency, Incontinence, Hematuria, Retention , Other Musculoskeletal: negative: Neck Pain, Shoulder Pain, Arm Pain, Back Pain, Hand Pain, Leg Pain, Foot Pain, Other Skin: negative: Rash, Lesions, Jose Armando, Bruising, Other - Medications/Allergies Allergies/Adverse Reactions: Allergies Allergy/AdvReac Type Severity Reaction Status Date / Time No Known Allergies Allergy Unverified 03/25/17 11:41 Medications: Current Medications Acetaminophen (Tylenol) 650 mg PO Q4H PRN PRN Reason: Headache/Fever/Mild Pain (1-3) Last Admin: 06/30/18 19:59 Dose: 650 mg Hydrocodone Bitart/Acetaminophen ([place] 5/325) 1 tab PO Q4H PRN PRN Reason: Moderate Pain (4-6) Last Admin: 07/01/18 10:23 Dose: 1 tab Amlodipine Besylate (Norvasc) 5 mg PO BID [facility] Last Admin: 07/01/18 09:01 Dose: 5 mg Artificial Tears (Tears Naturale) 2 drop EA EYE PRN PRN PRN Reason: Dry Eyes Atenolol (Tenormin) 50 mg PO HS [facility] Last Admin: 06/30/18 20:37 Dose: 50 mg Bisacodyl (Dulcolax) 10 mg PO DAILYPRN PRN PRN Reason: Constipation Last Admin: 06/30/18 23:38 Dose: 10 mg Calcium Carbonate (Tums) 1,000 mg PO Q4H PRN PRN Reason: Heartburn or Indigestion Enoxaparin Sodium (Lovenox) 80 mg SC 0900,2100 [facility] Last Admin: 07/01/18 09:00 Dose: 80 mg Famotidine (Pepcid) 20 mg PO BID [facility] Last Admin: 07/01/18 09:01 Dose: 20 mg Guaifenesin (Robitussin Sf) 200 mg PO Q4H PRN PRN Reason: Cough Hydralazine HCl (Apresoline) 10 mg SLOW IVP Q4H PRN PRN Reason: SBP > 180 and HR < 70 Ceftriaxone Sodium 1 gm/ (Sodium Chloride) 100 mls @ 200 mls/hr IVPB Q24HR [facility] Last Admin: 07/01/18 09:01 Dose: 100 mls Loperamide HCl (Imodium) 2 mg PO PRN PRN PRN Reason: Diarrhea/Loose Stools Loratadine (Claritin) 10 mg PO DAILYPRN PRN PRN Reason: Sinus Symptoms Mineral Oil/White Petrolatum (Eucerin Cream) 0 gm TOP BIDPRN PRN PRN Reason: Dry Skin Ondansetron HCl (Zofran Odt) 4 mg PO Q6H PRN PRN Reason: Nausea/Vomiting Ondansetron HCl (Zofran) 4 mg IVP Q6H PRN PRN Reason: Nausea/Vomiting Senna/Docusate Sodium (Senokot S) 2 tab PO BID PRN PRN Reason: Constipation Sodium Chloride ([place] Nasal [place] 0.65%) 0 ml EA NARE QIDPRN PRN PRN Reason: Nasal Congestion Sodium Chloride (Flush - Normal Saline) 10 ml IVF Q12HR [facility] Last Admin: 07/01/18 09:01 Dose: 10 ml Sodium Chloride (Flush - Normal Saline) 10 ml IVF PRN PRN PRN Reason: Saline Flush Throat Lozenges (Cepastat Lozenges) 1 [place] PO Q2H PRN PRN Reason: Sore Throat Tramadol HCl (Ultram) 50 mg PO Q6H PRN PRN Reason: Pain Zolpidem Tartrate (Ambien) 5 mg PO HSPRN PRN PRN Reason: Insomnia
[2018-07-01] MEDS ORDERED: Temazepam 15 MG CAP PO PRN (19:36)
[2018-07-01] MEDS: Atenolol 50 MG TAB PO SCH (20:18)
[2018-07-01] MEDS: traMADol HCl 50 MG TAB PO PRN (20:19)
[2018-07-01] MEDS: Senokot S 8.6-50 MG TAB PO PRN (20:42)
[2018-07-02 04:29] LABS: Hemoglobin 9.3 g/dL (12.0-16.0); Platelet Count 292 thou/uL (130-400)
[2018-07-02 04:52] LABS: Calc. Creatinine Clearance 95 mL/min (70-130); Estimated GFR-MDRD Greater than 90
[2018-07-02 07:58] VITALS: TEMP 98.8
[2018-07-02] MEDS: Enoxaparin Sodium 80 MG/0.8 ML SYRINGE SC SCH (09:32)
[2018-07-02] MEDS: cefTRIAXone\\ROCEPHIN 1 GM in Sodium Chloride 0.9% 100 ML IVPB SCH (09:32)
[2018-07-02] MEDS: Famotidine 20 MG TAB PO SCH (09:34)
[2018-07-02] MEDS: Amlodipine 5 MG TAB PO SCH (09:34)
[2018-07-02] MEDS: Bisacodyl 5 MG TAB PO PRN (09:44)
[2018-07-02] MEDS: Senokot S 8.6-50 MG TAB PO PRN (09:45)
[2018-07-02] MEDS ORDERED: Magnesium Citrate 300 ML BOT PO SCH (10:30)
[2018-07-02 12:03] VITALS: BP 117/57
--- NOTE | 2018-07-02 13:27 | PDOC.PN ---
- Subjective Encounter Start Date: 07/02/18 Encounter Start Time: 10:15 Patient seen and examined. No new complaints. No overnight events - Objective Resuscitation Status - Order Detail: 06/29/18 23:02 Resuscitation Status Routine Resuscitation Status: DNAR: NO Resuscitation Discussed with: discussed with pt and confirmed MAR Reviewed: Yes Vital Signs & Weight: Vital Signs (12 hours) Temp Pulse Pulse Pulse Resp BP BP 07/02/18 09:34 76 105/54 L 07/02/18 09:30 83 89 117/57 L 07/02/18 08:46 97 88 117/83 07/02/18 07:51 98.8 F 76 18 07/02/18 04:00 99.1 F 77 16 BP BP Pulse Ox Pulse Ox Pulse Ox 07/02/18 09:34 07/02/18 09:30 128/67 97 93 L 07/02/18 08:46 128/61 94 L 07/02/18 07:51 105/54 L 93 L 07/02/18 04:00 106/58 L 92 L Weight Weight 174 lb 9.6 oz I&O: 07/01/18 07/02/18 07/03/18 06:59 06:59 06:59 Intake Total 120 1100 Output Total 200 Balance -80 1100 Result Diagrams: 07/02/18 04:08 07/02/18 04:08 Phys Exam - Physical Examination Constitutional: NAD HEENT: PERRLA, moist MMs, sclera anicteric Neck: no JVD, supple Respiratory: no wheezing, no rales, no rhonchi Cardiovascular: RRR, no significant murmur, no rub Gastrointestinal: soft, non-tender, no distention, positive bowel sounds Musculoskeletal: no edema, pulses present Neurological: non-focal, normal sensation Lymphatic: no nodes Psychiatric: normal affect Skin: no rash, normal turgor Dx/Plan (1) Deep vein thrombosis (DVT) of popliteal vein of left lower extremity Code(s): I82.432 - ACUTE EMBOLISM AND THROMBOSIS OF LEFT POPLITEAL VEIN Status : Acute (2) Hypokalemia Code(s): E87.6 - HYPOKALEMIA Status: Acute (3) Pulmonary embolism Code(s): I26.99 - OTHER PULMONARY EMBOLISM WITHOUT ACUTE COR PULMONALE Status : Acute (4) UTI (urinary tract infection) Status: Acute (5) Anemia, normocytic normochromic Code(s): D64.9 - ANEMIA, UNSPECIFIED Status: Chronic (6) Hypertension Code(s): I10 - ESSENTIAL (PRIMARY) HYPERTENSION Status: Chronic (7) Obesity (BMI 30.0-34.9) Code(s): E66.9 - OBESITY, UNSPECIFIED Status: Chronic (8) Ovarian cancer Status: Chronic - Plan * . Review of Systems - Review of Systems ENT: negative: Ear Pain, Ear Discharge, Nose Pain, Nose Discharge, Nose Congestion, Mouth Pain, Mouth Swelling, Throat Pain, Throat Swelling, Other Respiratory: negative: Cough, Dry, Shortness of Breath, Hemoptysis, SOB with Excertion, Pleuritic Pain, Sputum, Wheezing Cardiovascular: negative: chest pain, palpitations, orthopnea, paroxysmal nocturnal dyspnea, edema, light headedness, other Gastrointestinal: negative: Nausea, Vomiting, Abdominal Pain, Diarrhea, Constipation, Melena, Hematochezia, Other Genitourinary: negative: Dysuria, Frequency, Incontinence, Hematuria, Retention , Other Musculoskeletal: negative: Neck Pain, Shoulder Pain, Arm Pain, Back Pain, Hand Pain, Leg Pain, Foot Pain, Other - Medications/Allergies Allergies/Adverse Reactions: Allergies Allergy/AdvReac Type Severity Reaction Status Date / Time No Known Allergies Allergy Unverified 03/25/17 11:41 Medications: Current Medications Acetaminophen (Tylenol) 650 mg PO Q4H PRN PRN Reason: Headache/Fever/Mild Pain (1-3) Last Admin: 06/30/18 19:59 Dose: 650 mg Hydrocodone Bitart/Acetaminophen ([place] 5/325) 1 tab PO Q4H PRN PRN Reason: Moderate Pain (4-6) Last Admin: 07/01/18 10:23 Dose: 1 tab Amlodipine Besylate (Norvasc) 5 mg PO BID [facility] Last Admin: 07/02/18 09:34 Dose: Not Given Artificial Tears (Tears Naturale) 2 drop EA EYE PRN PRN PRN Reason: Dry Eyes Atenolol (Tenormin) 50 mg PO HS [facility] Last Admin: 07/01/18 20:18 Dose: 50 mg Bisacodyl (Dulcolax) 10 mg PO DAILYPRN PRN PRN Reason: Constipation Last Admin: 07/02/18 09:44 Dose: 10 mg Calcium Carbonate (Tums) 1,000 mg PO Q4H PRN PRN Reason: Heartburn or Indigestion Enoxaparin Sodium (Lovenox) 80 mg SC 0900,2100 [facility] Last Admin: 07/02/18 09:32 Dose: 80 mg Famotidine (Pepcid) 20 mg PO BID [facility] Last Admin: 07/02/18 09:34 Dose: 20 mg Guaifenesin (Robitussin Sf) 200 mg PO Q4H PRN PRN Reason: Cough Hydralazine HCl (Apresoline) 10 mg SLOW IVP Q4H PRN PRN Reason: SBP > 180 and HR < 70 Ceftriaxone Sodium 1 gm/ (Sodium Chloride) 100 mls @ 200 mls/hr IVPB Q24HR [facility] Last Admin: 07/02/18 09:32 Dose: 100 mls Loperamide HCl (Imodium) 2 mg PO PRN PRN PRN Reason: Diarrhea/Loose Stools Loratadine (Claritin) 10 mg PO DAILYPRN PRN PRN Reason: Sinus Symptoms Magnesium Citrate (Citrate Of [place]esia 300 Ml Bot) 300 ml PO NOW [facility] Stop: 07/02/18 13:30 Last Admin: 07/02/18 10:43 Dose: 300 ml Mineral Oil/White Petrolatum (Eucerin Cream) 0 gm TOP BIDPRN PRN PRN Reason: Dry Skin Ondansetron HCl (Zofran Odt) 4 mg PO Q6H PRN PRN Reason: Nausea/Vomiting Ondansetron HCl (Zofran) 4 mg IVP Q6H PRN PRN Reason: Nausea/Vomiting Senna/Docusate Sodium (Senokot S) 2 tab PO BID PRN PRN Reason: Constipation Last Admin: 07/02/18 09:45 Dose: 2 tab Sodium Chloride ([place] Nasal [place] 0.65%) 0 ml EA NARE QIDPRN PRN PRN Reason: Nasal Congestion Sodium Chloride (Flush - Normal Saline) 10 ml IVF Q12HR [facility] Last Admin: 07/02/18 09:34 Dose: 10 ml Sodium Chloride (Flush - Normal Saline) 10 ml IVF PRN PRN PRN Reason: Saline Flush Last Admin: 07/02/18 09:35 Dose: 10 ml Temazepam (Restor[place]) 15 mg PO HSPRN PRN PRN Reason: Insomnia Last Admin: 07/01/18 20:19 Dose: 15 mg Throat Lozenges (Cepastat Lozenges) 1 [place]ora PO Q2H PRN PRN Reason: Sore Throat Tramadol HCl (Ultram) 50 mg PO Q6H PRN PRN Reason: Pain Last Admin: 07/01/18 20:19 Dose: 50 mg Zolpidem Tartrate (Ambien) 5 mg PO HSPRN PRN PRN Reason: Insomnia
[2018-07-02] MEDS ORDERED: Fleet Enema 133 ML BOT PR SCH (15:00)
[2018-07-02] MEDS: traMADol HCl 50 MG TAB PO PRN (18:04)
--- NOTE | 2018-07-03 05:06 | DIS ---
DATE OF ADMISSION: 06/30/2018 DATE OF DISCHARGE: 07/02/2018 DISCHARGE DISPOSITION: Home. PRIMARY DISCHARGE DIAGNOSES: Deep vein thrombosis of left popliteal vein, pulmonary embolism, asymptomatic urinary tract infection. SECONDARY DISCHARGE DIAGNOSES: Hypertension. Anemia, normocytic normochromic. Ovarian cancer, obesity with BMI 31. PRIMARY PROCEDURE/OPERATION: None. RADIOLOGICAL INVESTIGATION: CT angiography was positive for pulmonary embolism. Ultrasound was positive for DVT in popliteal vein. Echocardiography showed diastolic dysfunction. SIGNIFICANT LABORATORY DATA: Hemoglobin 9.3. INR 1.2. Creatinine 0.75. DISCHARGE MEDICATIONS: 1. Xarelto as directed. 2. Tramadol 50 mg p.o. p.r.n. as directed. 3. Hydrochlorothiazide 25 mg p.o. daily. 4. Atenolol 50 mg at bedtime. 5. Amlodipine 10 mg daily. 6. Phenergan 12.5 mg q.4 hourly p.r.n. 7. [place] 5 one or two tablets q.4 hourly p.r.n. CONTRAINDICATION: None. CODE STATUS: DNR. INPATIENT CONSULT: Oncology group was consulted while in the hospital. TEST RESULT PENDING ON DISCHARGE: None. ALLERGIES: NO KNOWN DRUG ALLERGIES. DISCHARGE PLAN: Posthospital, the patient will follow up with Oncology and primary care physician in one week. HOSPITAL COURSE: A 67-year-old female who has underlying history of ovarian cancer and she was receiving chemotherapy. The patient was complaining of chest pain and that is why Oncology ordered CT angiography, which was positive for PE and subsequently, the patient was sent to ER. We admitted this patient in hospital. We treated her with Lovenox while in hospital. We did ultrasound, which was positive for DVT in popliteal vein on the left side. Echocardiography showed diastolic dysfunction. She had asymptomatic UTI based on urinalysis, which was treated with Rocephin while in the hospital. She finished 3 days of antibiotic therapy. She had hypokalemia which was corrected. I have seen and examined the patient at bedside today. The patient is medically stable. Plan of care discussed with the patient and her family. Oncology cleared her for discharge. On discharge, we changed to Xarelto. The patient will follow up with primary care physician and Oncology as directed. Job ID: [id number]
--- NOTE | 2018-07-04 13:53 | EKG ---
Test Reason : Blood Pressure : / mmHG Vent. Rate : 098 BPM Atrial Rate : 098 BPM P-R Int : 126 ms QRS Dur : 082 ms QT Int : 356 ms P-R-T Axes : 019 024 005 degrees QTc Int : 454 ms Normal sinus rhythm Normal ECG Confirmed by JANINA LARKIN DO ([id number]), material expeditor LATOSHA FREEMAN ([id number] on 07/04/2018 1:53:18 PM Referred By: Confirmed By:JANINA LARKIN DO
== END 2018-07-02 18:22 | disposition home or self-care (01) | DRG 176 ==
LOC: ERS 16:55 → ONC 06-30 01:27
PROVIDERS: ADMIT Internal Medicine; ATTEND Internal Medicine
DX: I26.99 Other pulmonary embolism without acute cor pulmonale (principal); C56.9 Malignant neoplasm of unspecified ovary; N39.0 Urinary tract infection, site not specified; I82.432 Acute embolism and thrombosis of left popliteal vein; Z66 Do not resuscitate; D63.0 Anemia in neoplastic disease; I10 Essential (primary) hypertension; F41.9 Anxiety disorder, unspecified; F32.9 Major depressive disorder, single episode, unspecified; J45.909 Unspecified asthma, uncomplicated; M10.9 Gout, unspecified; E87.6 Hypokalemia; E66.9 Obesity, unspecified; Z92.21 Personal history of antineoplastic chemotherapy; Z68.31 Body mass index [BMI] 31.0-31.9, adult
CPT/HCPCS: 36415; 71275; 80053; 81003; 81015; 82248; 82565; 83615; 83735; 83880; 84100; 84484; 84550; 85014; 85018; 85025; 85049; 85610; 86304; 87086; 93005; 93306; 93970; 96372; J0696; J1642; J1650; J7050; Q9967

== ENCOUNTER 2018-08-04 16:30 | Inpatient (IN) | payer MEDICARE, BC ==
[~2018-08-04 16:30] MED LIST: Iopamidol 370 76% 100 ML VIAL ONE
[2018-08-04] MEDS ORDERED: Ondansetron ODT 4 MG TAB ONE (16:46)
[2018-08-04 17:14] LABS: Hemoglobin 12.2 g/dL (12.0-16.0); Mean Corpuscular HGB CONC 32.3 g/dL (32.0-36.0); Mean Corpuscular Hemoglobin 28.6 pg (27.0-31.0); Mean Corpuscular Volume 88.8 fL (78.0-98.0); Mean Platelet Volume 8.4 fL (7.4-10.4); Platelet Count 333 thou/uL (130-400); RBC Distribution Width 19.5 % (11.5-14.5); Red Blood Cell (RBC) Count 4.26 mill/uL (4.20-5.40); White Blood Cell (WBC) Count 4.8 thou/uL (4.8-10.8)
[2018-08-04 17:35] LABS: ALT (SGPT) 11 U/L (8-55); AST (SGOT) 23 U/L (5-34); Alkaline Phosphatase 68 U/L (40-150); Anion Gap 18 mmol/L (10-20); Anisocytosis SLIGHT = 6-15 cells (100X) (0-5/hpf); BUN (Urea Nitrogen) 16 mg/dL (9.8-20.1); Band 5 % (5-11); Bilirubin, Total 0.5 mg/dL (0.2-1.2); Calc. Creatinine Clearance 0 mL/min (70-130); Calcium 10.3 mg/dL (7.8-10.44); Carbon Dioxide 22 mmol/L (23-31); Chloride 104 mmol/L (98-107); Eosinophils 2 % (0-10); Estimated GFR-MDRD Greater than 90; Globulin 3.7 g/dL (2.4-3.5); Glucose 92 mg/dL (80-115); Lymphocytes 9 % (21-51); MDiff Complete? YES; Monocytes 12 % (0-10); Neutrophil 72 % (42-75); Platelet Morphology Comment 1; Potassium 3.6 mmol/L (3.5-5.1); Protein, Total 7.7 g/dL (6.0-8.3); Sodium 140 mmol/L (136-145)
--- NOTE | 2018-08-04 20:26 | CT ---
CT abdomen with contrast CT pelvis with contrast: DATE: 08/04/2018 HISTORY: 67-year-old female with ovarian cancer presents with nausea and vomiting. COMPARISON: 04/27/2018 TECHNIQUE: IV injection of iodinated contrast media: 70 mL [id number] Oral contrast media:Not administered FINDINGS: Again noted is the focal loculated fluid collection between the dome of the right lobe of the liver a nd the right hemidiaphragm. It measures approximately 2.5 x 4.5 x 3.5 cm, and probably has not significantly changed in size. It may be subcapsular with respect to the liver. It indents the dome o f the liver. No metastatic lesions in the liver parenchyma. No pleural effusion. Finding of focal airspace density at the posterior base of right lower lobe, perhaps representing sub segmental atelectasis, which is new since prior study. Multiple dilated small bowel loops with air-fluid levels, contrasted with multiple small bowel loops that are collapsed. A few transition zones visualized, one on the left and one on the right, and possibly additional transition zones. Suture line around loop of bowel at right lower quadrant. No abdominal aortic aneurysm. No hydronephr osis. Atrophic pancreas without additional pathology visualized. No adrenal mass. No splenomegaly. Approximately 1.5 x 1 cm left para-aortic retroperitoneal lymph node at upper L3 level, without signi ficant interval change. Approximately 1.3 cm left upper retroperitoneal para-aortic lymph node, unchanged. Small right pericardial lymph nodes are either stable or slightly smaller than before. 2.5 x 2.5 x 2 cm soft tissue density mass in the subcutaneous adipose tissue ventral to the right low er quadrant of the abdomen, anterior to the right iliac wing. A smaller 1 cm such nodule in the contralateral left anterolateral subcutaneous fat, lateral to the l eft iliac wing. No free fluid within the abdominal cavity or pelvic cavity. Absent uterus. Currently, it is difficult to identify a definite neoplastic tumor mass within the pelvic cavity. There is architectural distortion at the right paramedian aspect of the pelvic inlet perhaps representing adhesions or posts urgical scar.. IMPRESSION: 1) probable small bowel obstruction. 2) 2 soft tissue nodules in the subcutaneous fat anterolaterally located at the level of the pelvis, new since the prior CT. These may represent metastatic deposits. 3) fluid collection between the dome of the right lobe of the liver and the right hemidiaphragm, whic h could represent a subcapsular subcapsular hematoma, is unchanged. 4) the probable malignant mildly enlarged left retroperitoneal lymph nodes are stable. 5) right mildly enlarged paracardial lymph nodes are smaller now than before.
[2018-08-04] MEDS ORDERED: Ondansetron ODT 4 MG TAB PO PRN (22:03)
[2018-08-04] MEDS ORDERED: Acetaminophen 325 MG TAB PO PRN (22:03)
[2018-08-04] MEDS ORDERED: Morphine 4 MG/ML VIAL SLOW IVP PRN (22:16)
[2018-08-04 22:51] VITALS: BMI 27.3
[2018-08-05] MEDS ORDERED: Dextrose 5% in Water 1,000 ML IV PRN (02:04)
[2018-08-05] MEDS ORDERED: Dextrose 50% Abboject 50 ML SYRINGE SLOW IVP PRN (02:04)
[2018-08-05] MEDS ORDERED: HumaLOG 300 UNITS/3 ML VIAL SC PRN (02:04)
[2018-08-05] MEDS ORDERED: traMADol HCl 50 MG TAB PO PRN (02:04)
[2018-08-05] MEDS ORDERED: RIVAROXABAN PO SCH (02:15)
--- NOTE | 2018-08-05 03:07 | HP ---
PRIMARY CARE PHYSICIAN: Jaren Ku MD. CODE STATUS: Full code. TIME OF EVALUATION: 9:35 p.m. CHIEF COMPLAINT: Generalized weakness. HISTORY OF PRESENT ILLNESS: This 67-year-old female patient, with past medical history of diabetes type 2, hyperlipidemia, hypertension, ovarian cancer treated with chemo, gout, came to the hospital after having severe generalized weakness, fatigue, loss of appetite. The patient has been like this for a week. The last chemo was 3 weeks ago and has been reporting that she has been having constipation. The patient has some abdominal tenderness and she was found to have possible small bowel obstruction with some possible metastatic lesions. REVIEW OF SYSTEMS: CONSTITUTIONAL: No fever or chills. The patient did report generalized weakness and loss of appetite. RESPIRATORY: No cough, sputum production, or shortness of breath. CARDIOVASCULAR: No chest pain or palpitation. GASTROINTESTINAL: The patient has abdominal pain. No nausea. No diarrhea. DRIP BOX TENDER: No dizziness, headache, or feeling lightheaded. GENITOURINARY: No burning on urination. EXTREMITIES: No leg swelling. All other systems were reviewed and negative except for the findings mentioned above. PAST MEDICAL HISTORY: Mentioned in the HPI. PAST SURGICAL HISTORY: MediPort on the left chest, ovarian biopsy. PSYCHIATRIC HISTORY: Includes anxiety and depression. SOCIAL HISTORY: No drugs. No smoking history. No alcohol use. ALLERGIES: NO KNOWN DRUG ALLERGIES. REPORTED MEDICATIONS: 1. Atenolol. 2. Xarelto. 3. Vitamin. PHYSICAL EXAMINATION: VITAL SIGNS: Blood pressure 131/90 with heart rate 103, respiratory rate was 16, temperature 97.7, oxygen saturation 100 on room air. GENERAL APPEARANCE: The patient is alert, oriented, not in acute distress. HEENT: Eyes, normal conjunctivae. Moist oral mucosa. Anicteric. No JVD. RESPIRATORY: Bilateral air entry. No rales. No wheezes. Symmetric expansion. CARDIOVASCULAR: Normal rate, regular rhythm. No murmurs. No gallop. No edema. ABDOMEN: Soft, mildly tender. Normal bowel sounds. MUSCULOSKELETAL: Baseline range of motion and strength. No tenderness. SKIN: Warm, intact. No pallor. No rash. No redness. Peripheral pulses are present. Capillary refill seems to be intact. NEUROLOGICAL: No evidence of any new focal weakness. Baseline speech. Cranial nerves seems to be intact. PSYCHIATRIC: The patient has good mood. No anxiety. Optimal judgment. IMAGING STUDIES: EKG was reviewed. The patient has normal sinus rhythm with a rate of 97, SD 132, QRS 86. Abdomen and pelvis CT was reviewed and it showed; 1. Probable small bowel obstruction. 2. Two soft tissue nodules with subcutaneous fat anterolaterally located at the level of the pelvis, new since the prior CT. This may represent metastatic deposits. Fluid collection between the dome of the right lobe of the liver and the right hemidiaphragm, which could represent a subcapsular hematoma, is unchanged. Probably malignant mildly enlarged left retroperitoneal lymph nodes are stable, right mildly enlarged. Pericardial lymph nodes are smaller . LABORATORY DATA: Reviewed. The patient has white count of 4.8, hemoglobin 12.2, MCV 88.8, platelet count 333. Chemistry; sodium 140, potassium 3.6, chloride 104, carbon dioxide 22, anion gap 18, creatinine 0.77, GFR 90. LFTs were negative. Globulin 3.7, albumin 4.0. ASSESSMENT AND PLAN: The patient will be placed in the hospital with following medical problems: 1. Small bowel obstruction, could be related to underlying malignancy. Dr. Fry has been consulted. We will follow recommendation. The patient seems to be stable at this point. 2. History of ovarian cancer. The patient is receiving chemo, the last chemo was 2 weeks ago. She follows with Dr. Cabrera. This problem is chronic, seems to be stable at this point. 3. Uncontrolled hypertension. The patient has a systolic blood pressure in the 150s, reconcile home medications, we will treat accordingly. 4. Controlled diabetes. We will place the patient on sliding scale for optimal control. 5. Hyperlipidemia. Low-cholesterol diet is advised. Reconcile home medications. 6. Deep venous thrombosis prophylaxis. The patient is on Xarelto due to history of previous deep venous thrombosis. Job ID: [id number]
[2018-08-05] MEDS ORDERED: Sodium Chloride 0.9% 1,000 ML IV SCH (08:30)
[2018-08-05 08:38] LABS: Hemoglobin 11.4 g/dL (12.0-16.0); Mean Corpuscular HGB CONC 32.3 g/dL (32.0-36.0); Mean Corpuscular Hemoglobin 28.6 pg (27.0-31.0); Mean Corpuscular Volume 88.5 fL (78.0-98.0); Mean Platelet Volume 8.5 fL (7.4-10.4); Platelet Count 281 thou/uL (130-400); RBC Distribution Width 19.5 % (11.5-14.5); Red Blood Cell (RBC) Count 3.98 mill/uL (4.20-5.40); White Blood Cell (WBC) Count 5.8 thou/uL (4.8-10.8)
[2018-08-05] MEDS ORDERED: Lidocaine 2% 11 ML SYR TOP SCH (08:45)
[2018-08-05] MEDS ORDERED: Benzocaine 20% Spray 60 ML CAN FS SCH (08:45)
[2018-08-05 08:46] LABS: Calcium 9.6 mg/dL (7.8-10.44); Chloride 106 mmol/L (98-107); Glucose 84 mg/dL (80-115); Potassium 3.4 mmol/L (3.5-5.1); Sodium 142 mmol/L (136-145)
[2018-08-05 08:48] LABS: Anion Gap 18 mmol/L (10-20); Carbon Dioxide 21 mmol/L (23-31)
[2018-08-05 08:50] LABS: Calc. Creatinine Clearance 83 mL/min (70-130); Estimated GFR-MDRD Greater than 90
[2018-08-05 08:51] LABS: BUN (Urea Nitrogen) 17 mg/dL (9.8-20.1)
[2018-08-05 08:55] LABS: Magnesium 1.5 mg/dL (1.6-2.6); Phosphorus 3.8 mg/dL (2.3-4.7)
[2018-08-05] MEDS ORDERED: Prevnar 13-Val Conj/PF 0.5 ML SYRINGE IM ONE (09:00)
[2018-08-05] MEDS ORDERED: Enoxaparin Sodium 40 MG/0.4 ML SYRINGE SC SCH (09:00)
[2018-08-05] MEDS ORDERED: Enoxaparin Sodium 80 MG/0.8 ML SYRINGE SC SCH (09:00)
[2018-08-05] MEDS: Enoxaparin Sodium 80 MG/0.8 ML SYRINGE SC SCH ×2 (09:26→20:11)
[2018-08-05] MEDS: Ketorolac Tromethamine 30 MG/ML VIAL IVP PRN ×2 (09:27→20:51)
[2018-08-05] MEDS ORDERED: Magnesium Sulfate 2 GM in Sodium Chloride 0.9% 100 ML IVPB SCH (09:45)
[2018-08-05] MEDS ORDERED: Magnesium 2 GM/50 ML 2 GM in Premix Bag 1 BAG IVPB SCH (10:00)
[2018-08-05 10:12] LABS: Band 4 % (5-11); Eosinophils 1 % (0-10); Lymphocytes 21 % (21-51); MDiff Complete? YES; Monocytes 20 % (0-10); Neutrophil 50 % (42-75); Platelet Morphology Comment Appears Adequate; RBC Morphology Normal; Reactive Lymphocytes 3 % (0-10)
--- NOTE | 2018-08-05 14:42 | CON ---
DATE OF CONSULTATION: 08/05/2018 HISTORY OF PRESENT ILLNESS: Ms. Knight is a 67-year-old female with metastatic ovarian cancer, carboplatin refractory. She has most recently been on chemotherapy with Doxil and Avastin, although her last dose of Avastin was several weeks ago. This was complicated by a pulmonary embolism approximately one month ago. She has been off treatment most recently because of some insurance issues with [employer] and she has been quite week and we have been observing her for the last few weeks. She presented to the office on the day of admission with complaints of increasing nausea and vomiting as well as lack of bowel movements and she was not passing gas on further questioning. She was throwing up and was transferred to the emergency room from my office, where she was found likely on CAT scan to have a partial or complete small-bowel obstruction. Today, she is feeling marginally better with hydration. She continues to be nauseous. Her biggest complaint is that when the NG tube was attempted, it was not completely, and it did cause a bloody nose as well as pain in her neck. She denies abdominal pain currently. She still has not passed any gas or had any bowel movements since admission. She is chewing on ice chips, but says that intermittently she is vomiting, she denies significant nausea. PAST MEDICAL HISTORY: 1. Metastatic ovarian cancer, carboplatin refractory. 2. History of pulmonary embolism in the last month. 3. Anxiety. CURRENT MEDICATIONS: 1. Tylenol 650 mg p.o. q.4 h. p.r.n. 2. Atenolol 50 mg p.o. nightly. 3. Lovenox 40 mg subcutaneously daily. 4. Glucagon 1 mg IM p.r.n. hypoglycemia. 5. Humalog insulin and lispro sliding scale. 6. Morphine 2 mg IV q.4 h. p.r.n. 7. Xarelto Starter Pack. 8. Zofran 4 mg p.o. q.6 h. 9. Ultram 50 mg p.o. q.4-6 h. p.r.n. ALLERGIES: NO KNOWN DRUG ALLERGIES. SOCIAL HISTORY: Her is here and is quite supportive. She denies tobacco or alcohol use. She does have a granddaughter, who is flying in today from [place], who is also quite supportive. FAMILY HISTORY: Noncontributory. REVIEW OF SYSTEMS: Otherwise 10-point review of systems is negative including no fevers or chills. PHYSICAL EXAMINATION: VITAL SIGNS: Temperature 97.5, pulse 86, respirations 16, 02 sat 97% on room air, blood pressure 140/87. GENERAL: She is reclined, in no acute distress, pleasant, quite conversive. HEENT: Extraocular muscles are intact. She does have dry blood around her nares. NECK: Supple without lymphadenopathy. CARDIOVASCULAR: Regular rhythm. LUNGS: Clear to auscultation anteriorly. ABDOMEN: Hyperactive bowel sounds. Somewhat soft and nontender. EXTREMITIES: No edema. No ecchymosis. LABORATORY DATA: White blood cell count 4.8, hemoglobin 12.2, platelets 333. Sodium 140, potassium 3.6, chloride 104, CO2 of 22, BUN 16, creatinine 0.7, glucose 92, and calcium 10.3. Total bilirubin 0.5, AST 23, ALT 11, alkaline phosphatase 68, and albumin 4.0. CT scan done in the emergency room shows a metastatic lesion in the subcapsular area of the liver that has not significant changed in size, measures 2.5 x 4.5 x 3.5 cm. There are multiple dilated loops of bowel with air fluid level, a few transition zones are visualized, consistent with small-bowel obstruction. There are para-aortic and retroperitoneal lymph nodes, which are stable in size. ASSESSMENT: Ms. Knight is a 67-year-old female with; 1. Metastatic ovarian cancer, carboplatin resistant, but with stable disease on CT scan. 2. Small-bowel obstruction, possibly secondary to adhesions versus malignancy. 3. History of pulmonary embolism, recent. PLAN: 1. General Surgery has been consulted, I am not sure if we should attempt the NG tube again as she was quite uncomfortable with this procedure. I am hopeful she can be managed conservatively, but she may in fact need an operation if the bowel obstruction does not resolve clinically. 2. I have recommended transitioning her to full-dose Lovenox. 3. She is currently on hydration. 4. If she does not resolve in the next few days, I would recommend starting TPN. 5. We will follow with you. Job ID: [id number]
[2018-08-05] MEDS: NS 0.9% w/ 20 MEQ KCL 1,000 ML/1,000 ML BAG IV SCH ×2 (17:47)
[2018-08-05] MEDS ORDERED: Sodium Chloride 0.9% (PF) 10 ML VIAL FS PRN (18:10)
[2018-08-05] MEDS ORDERED: Pantoprazole 40 MG VIAL IVP SCH (18:30)
[2018-08-05] MEDS: Ondansetron PF 4 MG/2 ML Vial IVP PRN (20:10)
[2018-08-05] MEDS ORDERED: Atenolol 50 MG TAB PO SCH (21:00)
--- NOTE | 2018-08-05 22:05 | PDOC.PN ---
- Subjective Encounter Start Date: 08/05/18 Encounter Start Time: 12:30 Patient seen and examined for SBO. No BM. Not passing gas. No new epispode of Nausea/Vomiting. No new complaints. No overnight events - Objective Resuscitation Status - Order Detail: 08/04/18 22:03 Resuscitation Status Routine Resuscitation Status: FULL: Full Resuscitation MAR Reviewed: Yes Vital Signs & Weight: Vital Signs (12 hours) Temp Pulse Resp BP Pulse Ox 08/05/18 20:00 97.5 F L 89 16 152/82 H 95 08/05/18 17:28 97.6 F 95 20 137/84 100 08/05/18 12:00 98.1 F 75 16 133/82 96 Weight Admit Weight 154 lb 2 oz Weight 154 lb 2 oz I&O: 08/04/18 08/05/18 08/06/18 06:59 06:59 06:59 Intake Total 0 Balance 0 Result Diagrams: 08/05/18 07:50 08/05/18 07:50 Additional Labs: Accuchecks 08/05/18 08/05/18 08/05/18 20:03 16:37 11:01 POC Glucose 79 79 79 08/05/18 04:02 POC Glucose 88 Phys Exam - Physical Examination Constitutional: NAD Respiratory: no wheezing, no rhonchi Cardiovascular: RRR, no rub Gastrointestinal: soft, positive bowel sounds mild gen tenderness/ no rebound or guarding Musculoskeletal: no edema Neurological: moves all 4 limbs Dx/Plan - Plan DVT proph w/SCDs IMPRESSION: N/V due to SBO Hypokalemia Hypomagnesemia HTN HLD DM2 h/o Ovarian CA Recent LLE DVT/PE - on Lovenox PLAN: Replace Potassium and Magnessium NG tube attempted x 2 Cont IVF NPO except ice chips Cont current meds as below Review of Systems - Medications/Allergies Allergies/Adverse Reactions: Allergies Allergy/AdvReac Type Severity Reaction Status Date / Time No Known Allergies Allergy Verified 08/04/18 22:50 Medications: Current Medications Benzocaine (Hurricane 20% [place]) 0 ml FS ASDIR [facility] Last Admin: 08/05/18 09:31 Dose: 2 sprays Dextrose/Water (Dextrose 50%) 25 gm SLOW IVP PRN PRN PRN Reason: Hypoglycemia Enoxaparin Sodium (Lovenox) 70 mg SC 0900,2100 [facility] Last Admin: 08/05/18 20:11 Dose: 70 mg Glucagon (Glucagon) 1 mg IM PRN PRN PRN Reason: Hypoglycemia Potassium Chloride/Sodium Chloride (Ns 0.9% W/ 20 Meq Kcl) 1,000 ml in 1,000 mls @ 125 mls/hr IV .Q8H [facility] Last Admin: 08/05/18 17:47 Dose: 1,000 mls Insulin Human Lispro (Humalog) 0 units SC .MILD SLIDING SCALE PRN PRN Reason: Mild Correctional Scale Ketorolac Tromethamine (Toradol) 30 mg IVP Q6H PRN PRN Reason: Pain Stop: 08/10/18 08:21 Last Admin: 08/05/18 20:51 Dose: 30 mg Lidocaine HCl (Glydo) 11 ml TOP ASDIR [facility] Last Admin: 08/05/18 09:31 Dose: 11 ml Ondansetron HCl (Zofran) 4 mg IVP Q6H PRN PRN Reason: Nausea/Vomiting Last Admin: 08/05/18 20:10 Dose: 4 mg Pantoprazole Sodium (Protonix) 40 mg IVP Q12HR [facility] Sodium Chloride (Flush - Normal Saline) 10 ml IVF Q12HR [facility] Last Admin: 08/05/18 20:13 Dose: 10 ml Sodium Chloride (Flush - Normal Saline) 10 ml IVF PRN PRN PRN Reason: Saline Flush Sodium Chloride (Normal Saline Pf) 10 ml FS PRN PRN PRN Reason: RECONSTITUTION
[2018-08-06] MEDS: NS 0.9% w/ 20 MEQ KCL 1,000 ML/1,000 ML BAG IV SCH ×2 (01:52→10:08)
--- NOTE | 2018-08-06 06:54 | CON ---
DATE OF CONSULTATION: 08/05/2018 REASON FOR CONSULTATION: Suspected small bowel obstruction. HISTORY OF PRESENT ILLNESS: The patient is a 67-year-old black female. She has a history of metastatic ovarian cancer. She underwent hysterectomy for this in May 2017. She had a MediPort placed for chemotherapy in March 2017. She continues to undergo chemotherapy per Dr. Cabrera. She developed a pulmonary embolus for which she has been anticoagulated about 6 weeks ago. The patient presented for outpatient oncology services yesterday (on June 04) and gave a history of ongoing problems with nausea, vomiting, poor oral intake, and very little in the way of bowel movements for about the past 3 weeks. She was referred to the emergency room where she underwent CT scan which showed findings of a small bowel obstruction. There was no concerning obstructive mass. Nasogastric tube was attempted in the emergency room, but was unsuccessful. The patient was therefore admitted to the floor, on bowel rest. The patient tells me that she had a disimpaction a couple of weeks ago and has only had small amounts of bowel movement since then. She gives a history of problems with vomiting over the past 2 to 3 weeks, but believes it has been more significant recently. She denies any current abdominal discomfort. PAST MEDICAL HISTORY: 1. Hypertension. 2. Recent history of ovarian cancer. 3. Pulmonary embolism diagnosed last month. PAST SURGICAL HISTORY: 1. Hysterectomy in May 2017. 2. MediPort placement in March 2017. MEDICATIONS: 1. Xarelto. 2. Atenolol. ALLERGIES: NO KNOWN DRUG ALLERGIES. PERSONAL AND SOCIAL HISTORY: She is and has one child. She denies tobacco or alcohol use. REVIEW OF SYSTEMS: Otherwise unremarkable. FAMILY HISTORY: Noncontributory. PHYSICAL EXAMINATION: VITAL SIGNS: She is afebrile. Pulse is 76 and regular. Blood pressure is 133/80. GENERAL: She is a well-developed, well-nourished, pleasant, black female, resting in bed. No acute distress. She is alert and oriented x3. HEAD, EYES, EARS, NOSE, AND THROAT: Unremarkable. NECK: Supple. LUNGS: Clear to auscultation. CARDIAC: Regular rate and rhythm without murmur. ABDOMEN: Nondistended with normoactive bowel sounds. There is no evidence of tympany associated with her bowel sounds at this time. Her abdomen seems somewhat firm to palpation, but she denies tenderness. EXTREMITIES: Unremarkable. LABORATORY DATA: CBC reveals a hemoglobin of 11.4 with a white blood cell count of 5.8, platelet count of 281, her differential is unremarkable. Chemistry panel shows essentially normal electrolytes. Her albumin is preserved at 4.0. Liver function tests are within normal limits. CT of abdomen was reviewed. This does have findings consistent with small bowel obstruction. Etiology of the obstruction is difficult to discern. ASSESSMENT: The patient with small bowel obstruction. In light of her prior hysterectomy and her history of metastatic ovarian cancer, it is difficult to discern if this is an adhesive obstruction or a malignant obstruction. It is somewhat concerning that her symptoms gone on for a couple of weeks instead of a couple of days. I also recommended nasogastric tube placement and attempted to place this using topical anesthesia. Unfortunately, there is something in her nasopharyngeal anatomy that makes it difficult if not impossible to pass the nasogastric tube and attempts were aborted secondary to the patient's discomfort. For now, I would recommend a course of observation with bowel rest with leaving her n.p.o. She may certainly suck on ice chips to keep her mouth moist. I will obtain a Gastrografin small-bowel follow-through tomorrow (08/06). If this shows persistent obstructive findings, she will probably need an exploration either laparoscopic or open to discern and treat the cause of the obstruction. I have discussed all this in detail with the patient. She understands and agrees to proceed in this fashion. Job ID: [id number]
[2018-08-06] MEDS: Enoxaparin Sodium 80 MG/0.8 ML SYRINGE SC SCH ×2 (09:54→21:00)
[2018-08-06] MEDS: Pantoprazole 40 MG VIAL IVP SCH ×2 (09:57→22:27)
[2018-08-06] MEDS ORDERED: Sodium Chloride 0.65% Nasal 44 ML BOT EA NARE PRN (10:18)
[2018-08-06] MEDS ORDERED: Oxymetazoline HCl 0.05% ( 15 ML ) NASAL PRN (10:25)
--- NOTE | 2018-08-06 10:30 | PDOC.PN ---
- Subjective Encounter Start Date: 08/06/18 Encounter Start Time: 10:28 Patient seen and examined for SBO. Intermittent Epistaxis. Nausea. No vomiting. No BM. No other complaints. No overnight events - Objective Resuscitation Status - Order Detail: 08/04/18 22:03 Resuscitation Status Routine Resuscitation Status: FULL: Full Resuscitation MAR Reviewed: Yes Vital Signs & Weight: Vital Signs (12 hours) Temp Pulse Resp BP Pulse Ox 08/06/18 08:00 98.0 F 81 18 159/96 H 97 08/06/18 04:00 97.5 F L 76 15 145/89 H 100 08/06/18 00:00 97.3 F L 81 18 146/90 H 97 Weight Admit Weight 154 lb 2 oz Weight 154 lb 2 oz I&O: 08/05/18 08/06/18 08/07/18 06:59 06:59 06:59 Intake Total 0 955 Balance 0 955 Result Diagrams: 08/05/18 07:50 08/05/18 07:50 Additional Labs: Accuchecks 08/06/18 08/05/18 08/05/18 04:40 20:03 16:37 POC Glucose 78 79 79 08/05/18 11:01 POC Glucose 79 Phys Exam - Physical Examination Constitutional: NAD Respiratory: no wheezing, no rhonchi Cardiovascular: RRR, no rub Gastrointestinal: soft, positive bowel sounds mild gen tenderness, no rigidity Musculoskeletal: no edema Neurological: moves all 4 limbs Dx/Plan - Plan DVT proph w/lovenox IMPRESSION: N/V due to SBO Hypokalemia/Hypomagnesemia HTN HLD DM2 h/o Ovarian CA Recent LLE DVT/PE - on SQ Lovenox Epistaxis PLAN: Small bowel follow study today Cont vasocontrictor for Epistaxis - Will consult ENT if persistent Cont IVF NPO except ice chips Cont current meds as below AM labs Review of Systems - Review of Systems Respiratory: negative: Cough, Dry, Shortness of Breath, Hemoptysis, SOB with Excertion, Pleuritic Pain, Sputum, Wheezing Cardiovascular: negative: chest pain, palpitations, orthopnea, paroxysmal nocturnal dyspnea, edema, light headedness, other - Medications/Allergies Allergies/Adverse Reactions: Allergies Allergy/AdvReac Type Severity Reaction Status Date / Time No Known Allergies Allergy Verified 05/14/19 22:50 Medications: Current Medications Benzocaine (Hurricane 20% [place]) 0 ml FS ASDIR [facility] Last Admin: 08/05/18 09:31 Dose: 2 sprays Dextrose/Water (Dextrose 50%) 25 gm SLOW IVP PRN PRN PRN Reason: Hypoglycemia Enoxaparin Sodium (Lovenox) 70 mg SC 0900,2100 [facility] Last Admin: 08/06/18 09:54 Dose: 70 mg Glucagon (Glucagon) 1 mg IM PRN PRN PRN Reason: Hypoglycemia Potassium Chloride/Sodium Chloride (Ns 0.9% W/ 20 Meq Kcl) 1,000 ml in 1,000 mls @ 125 mls/hr IV .Q8H [facility] Last Admin: 08/06/18 10:08 Dose: Not Given Acetaminophen 1,000 mg/ Device 100 mls @ 400 mls/hr IVPB Q6HR [facility] Stop: 08/07/18 06:14 Insulin Human Lispro (Humalog) 0 units SC .MILD SLIDING SCALE PRN PRN Reason: Mild Correctional Scale Ketorolac Tromethamine (Toradol) 30 mg IVP Q6H PRN PRN Reason: Pain Stop: 08/10/18 08:21 Last Admin: 08/05/18 20:51 Dose: 30 mg Lidocaine HCl (Glydo) 11 ml TOP ASDIR [facility] Last Admin: 08/05/18 09:31 Dose: 11 ml Ondansetron HCl (Zofran) 4 mg IVP Q6H PRN PRN Reason: Nausea/Vomiting Last Admin: 08/05/18 20:10 Dose: 4 mg Oxymetazoline HCl (Oxymetazoline Hcl) 0 sprays NASAL Q4H PRN PRN Reason: Nasal Congestion Pantoprazole Sodium (Protonix) 40 mg IVP Q12HR [facility] Last Admin: 08/06/18 09:57 Dose: 40 mg Phenylephrine HCl ([place]-Synephrine 0.5% Nasal [place]) 0 ml EA NARE Q4H PRN PRN Reason: Nasal Congestion Last Admin: 08/06/18 03:41 Dose: 1 spr Sodium Chloride (Flush - Normal Saline) 10 ml IVF Q12HR [facility] Last Admin: 08/06/18 10:08 Dose: 10 ml Sodium Chloride (Flush - Normal Saline) 10 ml IVF PRN PRN PRN Reason: Saline Flush Sodium Chloride (Normal Saline Pf) 10 ml FS PRN PRN PRN Reason: RECONSTITUTION Sodium Chloride ([place] Nasal [place] 0.65%) 0 ml EA NARE TID [place] Sodium Chloride ([place] Nasal [place] 0.65%) 0 ml EA NARE TID PRN PRN Reason: Nasal Congestion
[2018-08-06] MEDS ORDERED: MD-Gastroview 120 ML BOT ONE (10:53)
[2018-08-06] MEDS: Acetaminophen 1,000 MG in Premix Bag 1 BAG IVPB SCH ×2 (11:20→18:00)
[2018-08-06] MEDS: Ondansetron PF 4 MG/2 ML Vial IVP PRN (11:21)
[2018-08-06] MEDS ORDERED: D5 1/2 NS w/10 mEq KCl 1,000 ML/1,000 ML BAG IV SCH (12:30)
--- NOTE | 2018-08-06 13:27 | RAD ---
EXAM: Small bowel follow-through HISTORY: Small bowel obstruction COMPARISON: None FINDINGS: A Gastrografin small bowel follow-through was performed. There are multiple dilated loops o f small bowel. Contrast does not pass through the small bowel loops after carrying the exam out to 5 hours. IMPRESSION: The contrast does not pass through the small bowel loops consistent with bowel obstructio n.
[2018-08-06] MEDS: Sodium Chloride 0.65% Nasal 44 ML BOT EA NARE SCH ×2 (15:30→22:00)
[2018-08-06] MEDS ORDERED: Ondansetron PF 4 MG/2 ML Vial ONE ×2 (15:54→16:40)
[2018-08-06] MEDS ORDERED: Succinylcholine Chloride 20 MG/ML 10 ml SYRINGE FS ONE (16:40)
[2018-08-06] MEDS ORDERED: Glycopyrrolate 0.2 MG/ML 5 ML SYRINGE ONE (16:40)
[2018-08-06] MEDS ORDERED: PROPOFOL 200 MG/20 ML VIAL ONE (16:40)
[2018-08-06] MEDS ORDERED: Esmolol 100 MG/10 ML VIAL ONE (16:40)
[2018-08-06] MEDS ORDERED: Rocuronium Bromide 10 MG/ML (10ML VIAL) ONE (16:40)
[2018-08-06] MEDS ORDERED: Metoprolol Tartrate 5 MG/5 ML VIAL ONE (16:40)
[2018-08-06] MEDS ORDERED: Lidocaine 1% PF 5 ML VIAL ONE (16:40)
[2018-08-06] MEDS ORDERED: Labetalol HCl 100 MG/20 ML VIAL ONE ×2 (16:40→19:35)
[2018-08-06] MEDS ORDERED: ePHEDrine 50 MG/ML VIAL ONE (16:40)
[2018-08-06] MEDS ORDERED: Bupivacaine/Epinephrine 0.25% 30 ML VIAL ONE (16:46)
[2018-08-06 16:50] LABS: ALT (SGPT) 8 U/L (8-55); AST (SGOT) 18 U/L (5-34); Albumin 3.6 g/dL (3.4-4.8); Alkaline Phosphatase 57 U/L (40-150); Anion Gap 16 mmol/L (10-20); BUN (Urea Nitrogen) 18 mg/dL (9.8-20.1); Bilirubin, Total 0.4 mg/dL (0.2-1.2); Calc. Creatinine Clearance 85 mL/min (70-130); Calcium 8.8 mg/dL (7.8-10.44); Carbon Dioxide 19 mmol/L (23-31); Chloride 112 mmol/L (98-107); Estimated GFR-MDRD Greater than 90; Globulin 2.9 g/dL (2.4-3.5); Glucose 79 mg/dL (80-115); Magnesium 2.1 mg/dL (1.6-2.6); Protein, Total 6.5 g/dL (6.0-8.3); Sodium 143 mmol/L (136-145)
[2018-08-06] MEDS ORDERED: Fentanyl 250 MCG/5 ML VIAL ONE (16:57)
[2018-08-06] MEDS ORDERED: Oxymetazoline HCl 0.05% ( 15 ML ) ONE (17:28)
[2018-08-06] MEDS ORDERED: Morphine 4 MG/ML VIAL ONE (18:59)
[2018-08-06] MEDS ORDERED: Ondansetron HCl/PF 4 MG/2 ML Vial IVP PRN (19:37)
[2018-08-06] MEDS ORDERED: Promethazine HCl 25 MG/ML VIAL IM PRN (19:37)
[2018-08-06] MEDS ORDERED: Promethazine HCl 25 MG/ML VIAL SLOW IVP PRN (19:37)
[2018-08-06] MEDS ORDERED: Fentanyl 100 MCG/2 ML VIAL ONE (19:52)
[2018-08-06] MEDS ORDERED: Ondansetron PF 4 MG/2 ML Vial IVP PRN (20:07)
[2018-08-06] MEDS ORDERED: Naloxone HCl 0.4 mg/ml Vial IV PRN (20:07)
[2018-08-06] MEDS ORDERED: Morphine CADD 1 MG/ML CADD IVPB PRN (20:07)
[2018-08-06] MEDS ORDERED: Morphine Sulfate 100 MG in Dextrose 5% in Water 98 ML IV SCH (20:46)
--- NOTE | 2018-08-06 21:35 | PRG ---
DATE OF SERVICE: 08/06/2018 SUBJECTIVE: Ms. Knight developed epistaxis secondary to vomiting post surgical procedure. Currently, the bleeding is under control, just mild leaking of blood periodically from the nose, though it is possible this is secondary to clot formation. The patient has no significant history of epistaxis in the past. She is currently on Lovenox postsurgically. No other complaints. OBJECTIVE: The patient is well developed and well nourished. She is in no acute distress. Nasal exam reveals two small areas of bleeding in the right nostril, one anterior septum, the second one appears to be possibly on the inferior turbinates. The nose was sprayed using a combo spray to both anesthetize and vasoconstrict to control bleeding. The nose was then suctioned to remove as much clotting material as possible. After this, silver nitrate was used to cauterize two small areas of bleeding, both on the septum and what appeared to be the inferior turbinate of the right side nostril. After completion of cauterization, there appeared to be no new active bleeding that could be seen. ASSESSMENT: Epistaxis. PLAN: Keep nose moist with saline nasal spray. If bleeding begins again, may use Afrin nasal spray with direct pressure to control, and consult Ear, Nose, and Throat as needed. Job ID: [id number]
[2018-08-06] MEDS: D5 1/2 NS w/10 mEq KCl 1,000 ML/1,000 ML BAG IV SCH (22:25)
[2018-08-07] MEDS: Acetaminophen 1,000 MG in Premix Bag 1 BAG IVPB SCH ×3 (01:41→14:51)
[2018-08-07] MEDS: Communication Order-Pharmacy FS SCH ×2 (06:00→20:47)
[2018-08-07] MEDS ORDERED: Sodium Chloride 0.9% 500 ML IV SCH ×2 (06:15→06:45)
[2018-08-07 06:47] LABS: Mean Corpuscular HGB CONC 32.4 g/dL (32.0-36.0); Mean Corpuscular Hemoglobin 28.7 pg (27.0-31.0); Mean Corpuscular Volume 88.6 fL (78.0-98.0); Mean Platelet Volume 8.2 fL (7.4-10.4); Platelet Count 230 thou/uL (130-400); RBC Distribution Width 19.1 % (11.5-14.5); White Blood Cell (WBC) Count 5.5 thou/uL (4.8-10.8)
[2018-08-07 08:10] LABS: Band 41 % (5-11); Lymphocytes 19 % (21-51); MDiff Complete? YES; Metamyelocyte 3 % (0-0); Monocytes 12 % (0-10); Neutrophil 25 % (42-75); Platelet Morphology Comment Appears Adequate; Polychromasia SLIGHT = 2-3 cells (100X) (0-2/hpf)
[2018-08-07 08:18] LABS: Albumin 2.8 g/dL (3.4-4.8)
[2018-08-07 08:19] LABS: Chloride 116 mmol/L (98-107); Potassium 4.1 mmol/L (3.5-5.1); Sodium 141 mmol/L (136-145)
[2018-08-07 08:20] LABS: Calcium 8.1 mg/dL (7.8-10.44); Glucose 139 mg/dL (80-115)
[2018-08-07 08:21] LABS: Globulin 2.3 g/dL (2.4-3.5); Protein, Total 5.1 g/dL (6.0-8.3)
[2018-08-07 08:22] LABS: Anion Gap 13 mmol/L (10-20); Bilirubin, Total 0.4 mg/dL (0.2-1.2); Carbon Dioxide 16 mmol/L (23-31)
[2018-08-07 08:23] LABS: Alkaline Phosphatase 45 U/L (40-150)
[2018-08-07 08:25] LABS: AST (SGOT) 26 U/L (5-34); BUN (Urea Nitrogen) 21 mg/dL (9.8-20.1)
[2018-08-07 08:26] LABS: ALT (SGPT) 9 U/L (8-55)
[2018-08-07 08:31] LABS: Anion Gap 11 mmol/L (10-20); BUN (Urea Nitrogen) 20 mg/dL (9.8-20.1); Calc. Creatinine Clearance 56 mL/min (70-130); Carbon Dioxide 18 mmol/L (23-31); Chloride 116 mmol/L (98-107); Estimated GFR-MDRD 60; Glucose 144 mg/dL (80-115); Sodium 141 mmol/L (136-145)
[2018-08-07 08:33] LABS: Calc. Creatinine Clearance 52 mL/min (70-130); Estimated GFR-MDRD 56
--- NOTE | 2018-08-07 08:43 | OP ---
DATE OF PROCEDURE: 08/05/2018 PREOPERATIVE DIAGNOSIS: Small bowel obstruction. POSTOPERATIVE DIAGNOSIS: Small bowel obstruction secondary to malignant adhesions with finding of innumerable deposits of metastatic ovarian cancer. PROCEDURE PERFORMED: Exploratory laparotomy with lysis of adhesions and mobilization of bowel away from multiple areas of malignancy. ANESTHESIA: General endotracheal. INDICATIONS: The patient is a 67-year-old black female. She was unfortunately diagnosed with metastatic ovarian cancer. She has undergone chemotherapy and a hysterectomy last year. She presents at this time with recurrent and progressive episodes of vomiting over the past couple of weeks with CT evidence of bowel obstruction. A small bowel follow-through performed earlier this day revealed no passage of contrast through the small bowel and I therefore recommended exploration with consideration of laparoscopy versus laparotomy. With the degree of distention of her bowel, I was not optimistic that laparoscopy could be performed, but I proceeded with this at the family's request. DESCRIPTION OF PROCEDURE: Informed consent was obtained. The patient was taken to the operating room, where general endotracheal anesthesia obtained with the patient in supine position. Abdomen was prepped with ChloraPrep and draped in sterile fashion. Local anesthetic was infiltrated using 0.25% Marcaine with epinephrine. A 5-mm right upper quadrant incision was created through which a Veress needle was passed into the peritoneal cavity and pneumoperitoneum was established using carbon dioxide up to pressure of 15 mmHg. A 5-mm trocar port was passed through the same incision. Laparoscopic camera was passed through this port. I immediately recognized enumerable dilated loops of small bowel. There were dense adhesions to the anterior abdominal wall in the lower midline that were not remotely amenable to laparoscopic lysis. I therefore quickly converted to a laparotomy. A midline abdominal incision was created in the area of prior incision for her hysterectomy. Dissection was carried through skin and subcutaneous tissue. The fascia was incised in the midline and entry was gained into the abdominal cavity. The upper portion of the incision was opened uneventfully. In the lower portion of the incision, the adhesions were particularly dense and could only be mobilized with extreme difficulty. I meticulously sharply dissected the small bowel away from the anterior abdominal wall. It was very obvious that this was all secondary to malignancy and it was hard cancerous tissue that I was sharply dividing. The area of the obstruction was a knuckle of small bowel that was adherent down to the retroperitoneum and the anterior abdominal wall that was all more or less encased in malignancy. I was able to dissect this free. There were numerous other adhesions, some of which were normal postoperative adhesions, but most of these were malignant adhesions. I was able to mobilize the entire small bowel from the ligament of Treitz down to the ileocecal valve. The proximal bowel had been very dilated and the distal bowel had been very decompressed. There were 3 or 4 small serosal tears that I was able to identify and repair with interrupted 3-0 silk suture. The abdominal cavity was irrigated and all irrigant was aspirated. The area was inspected and although there were certainly areas of mild oozing at areas of malignancy that had been divided, there was no significant ongoing bleeding. I placed a sheet of Seprafilm against the dominant area of malignancy inferiorly and allowed the small bowel to follow over this. I then placed two more sheets of Seprafilm anteriorly over the abdominal viscera and closed the fascia over this using a running suture of looped #1 PDS. The patient had a thick layer of subcutaneous fat several inches thick. I therefore placed a #19 round fluted drain within this layer and brought this out superiorly in right lateral and secured this with 3-0 nylon suture. This was actually brought out through the previous port site. The midline wound was then closed with a running suture of 3-0 Vicryl to better approximate the skin edges and then skin braulio. Dry gauze dress was placed externally. There were no complications. The patient tolerated the procedure well. She was fairly hypertensive at the end of the case. Although, this instance of obstruction was likely appropriately treated with the surgery, it seems like it is only a matter of time before this progresses and develops another episode of obstruction. Job ID: [id number]
[2018-08-07] MEDS: Pantoprazole 40 MG VIAL IVP SCH ×2 (08:58→20:46)
[2018-08-07] MEDS: Sodium Chloride 0.65% Nasal 44 ML BOT EA NARE SCH ×3 (08:58→21:00)
[2018-08-07] MEDS: D5 1/2 NS w/10 mEq KCl 1,000 ML/1,000 ML BAG IV SCH ×2 (08:58→11:58)
--- NOTE | 2018-08-07 13:23 | PDOC.PN ---
- Subjective Encounter Start Date: 08/07/18 Encounter Start Time: 11:30 Patient seen and examined for SBO. s/p Exp Laparotomy and lysis of adhesions. 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 Pain controlled. No overnight events - Objective Resuscitation Status - Order Detail: 08/04/18 22:03 Resuscitation Status Routine Resuscitation Status: FULL: Full Resuscitation MAR Reviewed: Yes Vital Signs & Weight: Vital Signs (12 hours) Temp Pulse Resp BP Pulse Ox 08/07/18 11:00 97.4 F L 134 H 14 98/64 100 08/07/18 08:00 98.8 F 132 H 12 90/52 L 98 08/07/18 07:00 90/60 08/07/18 06:22 133 H 98/66 08/07/18 06:10 120/63 08/07/18 06:00 80/46 L Weight Admit Weight 154 lb 2 oz Weight 154 lb 2 oz I&O: 08/06/18 08/07/18 08/08/18 06:59 06:59 06:59 Intake Total 955 1500 0 Output Total 230 Balance 955 1270 0 Result Diagrams: 08/07/18 06:33 08/07/18 06:33 Additional Labs: Accuchecks 08/07/18 08/07/18 08/07/18 11:37 05:45 00:24 POC Glucose 108 156 H 163 H 08/06/18 20:52 POC Glucose 169 H Radiology Reviewed by me: Yes (Small bowel study - SBO) Phys Exam - Physical Examination Constitutional: NAD Respiratory: no wheezing, no rhonchi Cardiovascular: RRR (tachycardic), no rub Gastrointestinal: soft ?BS, mild gen tenderness Musculoskeletal: no edema Neurological: non-focal, moves all 4 limbs Dx/Plan - Plan DVT proph w/SCDs IMPRESSION: N/V due to SBO s/p Exp Lap and lysis of adhesions Epistaxis - slowly improving Hypokalemia/Hypomagnesemia - replaced Tachyarrythmia - prob due to hypotension/anemia Ovarian CA with mets Acute blood loss anemia from Epistaxis h/o HTN HLD DM2 Recent LLE DVT/PE - Lovenox on hold due to surgery PLAN: EKG Transfer to Tele if tachycardic after blood transfusion Cont IVF Cont supportive care Receiving 1 unit PRBC Monitor HH 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 Cont IVF Cont current meds as below Cont IV PPI AM labs Review of Systems - Review of Systems Respiratory: negative: Cough, Dry, Shortness of Breath, Hemoptysis, SOB with Excertion, Pleuritic Pain, Sputum, Wheezing Cardiovascular: negative: chest pain, palpitations, orthopnea, paroxysmal nocturnal dyspnea, edema, light headedness, other - Medications/Allergies Allergies/Adverse Reactions: Allergies Allergy/AdvReac Type Severity Reaction Status Date / Time No Known Allergies Allergy Verified 08/04/18 22:50 Medications: Current Medications Dextrose/Water (Dextrose 50%) 25 gm SLOW IVP PRN PRN PRN Reason: Hypoglycemia Glucagon (Glucagon) 1 mg IM PRN PRN PRN Reason: Hypoglycemia Potassium Chloride/Dextrose/Sod Cl (D5 1/2 Ns W/10 Meq Kcl) 1,000 ml in 1,000 mls @ 75 mls/hr IV .[id number] [facility] Last Admin: 08/07/18 11:58 Dose: 1,000 mls Acetaminophen 1,000 mg/ Device 100 mls @ 400 mls/hr IVPB 0800,1400 [facility] Stop: 08/07/18 14:14 Insulin Human Lispro (Humalog) 0 units SC .MILD SLIDING SCALE PRN PRN Reason: Mild Correctional Scale Ketorolac Tromethamine (Toradol) 30 mg IVP Q6H PRN PRN Reason: Pain Stop: 08/10/18 08:21 Last Admin: 08/05/18 20:51 Dose: 30 mg Miscellaneous Information (Communication Order-Pharmacy) 1 each 2014 [facility] Last Admin: 08/07/18 06:00 Dose: 1 each Morphine Sulfate (Morphine) 2 mg SLOW IVP Q3H PRN PRN Reason: Pain Naloxone HCl (Narcan) 0.2 mg IV Q5MIN PRN PRN Reason: Opiate Reversal Ondansetron HCl (Zofran) 4 mg IVP Q6H PRN PRN Reason: Nausea/Vomiting Last Admin: 08/06/18 11:21 Dose: 4 mg Ondansetron HCl (Zofran) 4 mg IVP Q6H PRN PRN Reason: Nausea/Vomiting Pantoprazole Sodium (Protonix) 40 mg IVP Q12HR [facility] Last Admin: 08/07/18 08:58 Dose: 40 mg Phenylephrine HCl (Zacarias-Synephrine 0.5% Nasal [place]) 0 ml EA NARE Q4H PRN PRN Reason: Nasal Congestion Last Admin: 08/06/18 03:41 Dose: 1 spr Sodium Chloride (Flush - Normal Saline) 10 ml IVF Q12HR [facility] Last Admin: 08/07/18 08:58 Dose: 10 ml Sodium Chloride (Flush - Normal Saline) 10 ml IVF PRN PRN PRN Reason: Saline Flush Sodium Chloride (Normal Saline Pf) 10 ml FS PRN PRN PRN Reason: RECONSTITUTION Sodium Chloride ([place] Nasal [place] 0.65%) 0 ml EA NARE TID [facility] Last Admin: 08/07/18 08:58 Dose: Not Given Sodium Chloride ([place] Nasal [place] 0.65%) 0 ml EA NARE TID PRN PRN Reason: Nasal Congestion
[2018-08-07] MEDS ORDERED: Sodium Bicarbonate 150 MEQ in Dextrose 5% in Water 1,000 ML IV SCH (13:45)
[2018-08-07] MEDS: Lactated Ringer's 1,000 ML IV SCH ×2 (14:05→20:46)
[2018-08-07 14:20] LABS: #Lymphocytes 1.2 thou/uL (1.20-3.40); #Monocytes 0.9 thou/uL (0.11-0.59); #Neutrophils 5.6 thou/uL (1.40-6.50); %Basophils 0.4 % (0.0-1.0); %Eosinophils 0.3 % (0.0-10.0); %Lymphocytes 15.3 % (21.0-51.0); %Monocytes 11.7 % (0.0-10.0); %Neutrophils 72.2 % (42.0-75.0); Hemoglobin 10.3 g/dL (12.0-16.0); Mean Corpuscular HGB CONC 32.1 g/dL (32.0-36.0); Mean Corpuscular Hemoglobin 30.4 pg (27.0-31.0); Mean Corpuscular Volume 94.6 fL (78.0-98.0); Mean Platelet Volume 8.2 fL (7.4-10.4); Platelet Count 236 thou/uL (130-400); RBC Distribution Width 19.6 % (11.5-14.5); Red Blood Cell (RBC) Count 3.38 mill/uL (4.20-5.40); White Blood Cell (WBC) Count 7.7 thou/uL (4.8-10.8)
[2018-08-07] MEDS: Morphine 2 MG/ML SYRINGE SLOW IVP PRN ×3 (14:50→23:53)
[2018-08-07] MEDS ORDERED: Enoxaparin Sodium 40 MG/0.4 ML SYRINGE SC SCH (15:45)
--- NOTE | 2018-08-07 19:34 | PRG ---
DATE OF SERVICE: 08/07/2018 SUBJECTIVE: Ms. Knight is postoperative day #1 from exploratory laparotomy with lysis of innumerable malignant adhesions. There were dense areas of recurrent carcinomatosis within her abdomen. There was no substantial blood loss during the course of the operation. She was, however, being fully anticoagulated prior to the surgery and there was some mild diffuse oozing. This morning, she had become tachycardic, going from a pulse of 90 last night to 130 this morning. Correspondingly, her blood pressure had dropped from 120/89 down to as low as 80/46. She was treated with fluid boluses and her blood pressure stabilized in the mid 90s, but her tachycardia persisted. She was transfused with 1 unit of packed red blood cells. Her hemoglobin level this morning had dropped down to 8.0. But after transfusion this afternoon, it had come up to 10.3 with just one unit. Her urine output was noted to be fairly low as well. Her IV fluid rate was increased, but without substantial difference as far as her hemodynamic response. She is relatively lethargic and mumbles much of her response, but she is alert and knows where she is and denies pain when lying still. When she is moved in bed, she does have abdominal discomfort. She has spit up several times, but never had any true emesis. OBJECTIVE: VITAL SIGNS: On examination, she is afebrile with a maximum temperature of 98.8. Pulse as mentioned is in the 130s. Blood pressure 98/60. LUNGS: Clear to auscultation anteriorly. CARDIAC: Regular rhythm, but tachycardic. ABDOMEN: Dressing is intact. Her subcutaneous drain is putting out minimal serosanguineous fluid. She has minimal tenderness to lateral palpation. Dressing is clean, dry, and intact. Bowel sounds are hypoactive but surprisingly present. EXTREMITIES: Unremarkable. LABORATORY DATA: As mentioned, her hemoglobin this morning was 8.0, but later in the day after transfusion, it was 10.3. Her white blood cell count went from 5.5 this morning up to 7.7 with left shift. Chemistry panel revealed acidosis with a low CO2 level of 16. Her BUN and creatinine are both slightly elevated at 21 and 1.2. ASSESSMENT: The patient with diffuse intraabdominal malignancy with carcinomatosis related to metastatic ovarian cancer. This had produced a complete small-bowel obstruction. She is not currently doing well following her surgery and I am not certain why. Her tachycardia does not appear to be related to blood loss as it is still present with a hemoglobin of 10. She did have a history of pulmonary embolism and I am not certain if she has problems related to this. She could potentially have an intraabdominal problem such as a leak. This would certainly be unlikely however. The family have made it clear that they desire no further aggressive treatment. The patient has been made DNR and plan is to discharge her tomorrow to hospice care. She has morphine available for her, but she really has not been requiring any significant pain medicine today. The tachycardia and hypotension that she has are certainly concerning for some process that will likely lead to her demise sooner rather than later, but for right now, aggressive workup of this is not being undertaken. Job ID: [id number]
[2018-08-08] MEDS: Morphine 2 MG/ML SYRINGE SLOW IVP PRN ×3 (03:09→14:54)
[2018-08-08] MEDS: Lactated Ringer's 1,000 ML IV SCH ×2 (03:18→08:37)
[2018-08-08 05:34] LABS: #Lymphocytes 1.5 thou/uL (1.20-3.40); #Monocytes 1.3 thou/uL (0.11-0.59); #Neutrophils 6.4 thou/uL (1.40-6.50); %Basophils 0.3 % (0.0-1.0); %Eosinophils 0.2 % (0.0-10.0); %Lymphocytes 15.9 % (21.0-51.0); %Monocytes 14.3 % (0.0-10.0); %Neutrophils 69.4 % (42.0-75.0); Hemoglobin 7.7 g/dL (12.0-16.0); Mean Corpuscular HGB CONC 33.3 g/dL (32.0-36.0); Mean Corpuscular Hemoglobin 30.8 pg (27.0-31.0); Mean Corpuscular Volume 92.5 fL (78.0-98.0); Mean Platelet Volume 8.4 fL (7.4-10.4); Platelet Count 188 thou/uL (130-400); RBC Distribution Width 19.8 % (11.5-14.5); Red Blood Cell (RBC) Count 2.49 mill/uL (4.20-5.40); White Blood Cell (WBC) Count 9.2 thou/uL (4.8-10.8)
[2018-08-08 06:28] LABS: Albumin 2.7 g/dL (3.4-4.8); Anion Gap 10 mmol/L (10-20); BUN (Urea Nitrogen) 30 mg/dL (9.8-20.1); BUN/Creatinine Ratio 22.06; Calc. Creatinine Clearance 46 mL/min (70-130); Calcium 8.5 mg/dL (7.8-10.44); Carbon Dioxide 21 mmol/L (23-31); Chloride 115 mmol/L (98-107); Estimated GFR-MDRD 47; Glucose 106 mg/dL (80-115); Magnesium 1.3 mg/dL (1.6-2.6); Phosphorus 3.3 mg/dL (2.3-4.7); Potassium 4.3 mmol/L (3.5-5.1); Sodium 142 mmol/L (136-145)
[2018-08-08] MEDS ORDERED: Magnesium Sulfate 3 GM in Sodium Chloride 0.9% 100 ML IVPB SCH (07:30)
[2018-08-08] MEDS: Pantoprazole 40 MG VIAL IVP SCH (08:37)
[2018-08-08 08:39] VITALS: BP 120/83; TEMP 97.9
[2018-08-08] MEDS ORDERED: Enoxaparin Sodium 40 MG/0.4 ML SYRINGE SC SCH (09:00)
[2018-08-08] MEDS: Sodium Chloride 0.65% Nasal 44 ML BOT EA NARE SCH ×2 (09:48→12:29)
--- NOTE | 2018-08-08 09:58 | EKG ---
Test Reason : Blood Pressure : / mmHG Vent. Rate : 123 BPM Atrial Rate : 123 BPM P-R Int : 118 ms QRS Dur : 082 ms QT Int : 352 ms P-R-T Axes : 024 028 074 degrees QTc Int : 503 ms Sinus tachycardia Otherwise normal ECG When compared with ECG of 04-AUG-2018 18:14, (Unconfirmed) No significant change was found Confirmed by DR. aDrya DOWNEY ([id number]) on 08/08/2018 9:58:02 AM Referred By: Confirmed By:DR. Darya DOWNEY
[2018-08-08] MEDS: Lorazepam 2 MG/ML VIAL SLOW IVP PRN ×2 (09:59→15:50)
--- NOTE | 2018-08-08 09:59 | EKG ---
Test Reason : Blood Pressure : / mmHG Vent. Rate : 112 BPM Atrial Rate : 112 BPM P-R Int : 120 ms QRS Dur : 088 ms QT Int : 370 ms P-R-T Axes : 028 027 072 degrees QTc Int : 505 ms Sinus tachycardia Otherwise normal ECG When compared with ECG of 07-AUG-2018 06:17, (Unconfirmed) No significant change was found Confirmed by DR. Darya DOWNEY ([id number]) on 08/08/2018 9:59:19 AM Referred By: TONI Confirmed By:DR. Darya DOWNEY
--- NOTE | 2018-08-08 10:46 | PDOC.PN ---
- Subjective Encounter Start Date: 08/08/18 Encounter Start Time: 08:10 Patient seen and examined. No new complaints. No overnight events - Objective Resuscitation Status - Order Detail: 08/07/18 14:49 Resuscitation Status Routine Co-Sign Provider: Resuscitation Status: DNAR: NO Resuscitation Discussed with: patient and Juan, granddaughter ROSEANNA Reviewed: Yes Vital Signs & Weight: Vital Signs (12 hours) Temp Pulse Resp BP BP Pulse Ox 08/08/18 08:00 97.9 F 150 H 16 120/83 93 L 08/08/18 04:57 98.1 F 146 H 20 135/93 H 96 Weight Admit Weight 154 lb 2 oz Weight 154 lb 2 oz I&O: 08/07/18 08/08/18 08/09/18 06:59 06:59 06:59 Intake Total 1500 0 Output Total 230 260 Balance 1270 -260 Result Diagrams: 08/08/18 05:17 08/08/18 05:17 Additional Labs: Accuchecks 08/08/18 08/07/18 08/07/18 04:58 19:41 16:41 POC Glucose 110 110 111 H 08/07/18 11:37 POC Glucose 108 Phys Exam - Physical Examination Constitutional: NAD HEENT: PERRLA, sclera anicteric Neck: no JVD, supple Respiratory: no wheezing, no rales, no rhonchi Cardiovascular: RRR, no significant murmur, no rub Gastrointestinal: soft, no distention Musculoskeletal: no edema, pulses present Neurological: non-focal Lymphatic: no nodes Psychiatric: normal affect Skin: no rash Dx/Plan (1) TAMEKA (acute kidney injury) Code(s): N17.9 - ACUTE KIDNEY FAILURE, UNSPECIFIED Status: Acute (2) Anemia due to acute blood loss Code(s): D62 - ACUTE POSTHEMORRHAGIC ANEMIA Status: Acute (3) Hypomagnesemia Code(s): E83.42 - HYPOMAGNESEMIA Status: Acute (4) SBO (small bowel obstruction) Code(s): K56.609 - UNSP INTESTNL OBST, UNSP TO PARTIAL VERSUS COMPLETE OBST Status: Acute (5) Anemia, normocytic normochromic Code(s): D64.9 - ANEMIA, UNSPECIFIED Status: Chronic (6) History of deep venous thrombosis or pulmonary embolus Code(s): YII2147 - Status: Chronic (7) Hypertension Code(s): I10 - ESSENTIAL (PRIMARY) HYPERTENSION Status: Chronic (8) Ovarian cancer Status: Chronic (9) Peritoneal carcinomatosis Code(s): C78.6 - SECONDARY MALIGNANT NEOPLASM OF RETROPERITON AND PERITONEUM; C80.1 - MALIGNANT (PRIMARY) NEOPLASM, UNSPECIFIED Status: Chronic - Plan cont current plan of care, plan discussed w/ family * I spoke with pt's son and daughter bedside, and confirmed that they want comfort care only * hospice will meet with family today as they prefer pt to be at home per her wish * will see if hospice able to meet all pt's needs at home for comfort care * possible discharge * replace magnesium * add ativan * provide comfort care. Review of Systems - Review of Systems Other: unable to review due to current cognitive status - Medications/Allergies Allergies/Adverse Reactions: Allergies Allergy/AdvReac Type Severity Reaction Status Date / Time No Known Allergies Allergy Verified 08/04/18 22:50 Medications: Current Medications Dextrose/Water (Dextrose 50%) 25 gm SLOW IVP PRN PRN PRN Reason: Hypoglycemia Enoxaparin Sodium (Lovenox) 40 mg SC 0900 [facility] Last Admin: 08/08/18 09:48 Dose: Not Given Glucagon (Glucagon) 1 mg IM PRN PRN PRN Reason: Hypoglycemia Lactated Ringer's (Lactated Ringer's) 1,000 mls @ 150 mls/hr IV .Q6H40M [facility] Last Admin: 08/08/18 08:37 Dose: 1,000 mls Insulin Human Lispro (Humalog) 0 units SC .MILD SLIDING SCALE PRN PRN Reason: Mild Correctional Scale Ketorolac Tromethamine (Toradol) 30 mg IVP Q6H PRN PRN Reason: Pain Stop: 08/10/18 08:21 Last Admin: 08/05/18 20:51 Dose: 30 mg Lorazepam (Ativan) 0.5 mg SLOW IVP Q4H PRN PRN Reason: Anxiety/Agitation Last Admin: 08/08/18 09:59 Dose: 0.5 mg Miscellaneous Information (Communication Order-Pharmacy) 1 each 2014 [facility] Last Admin: 08/07/18 20:47 Dose: Not Given Morphine Sulfate (Morphine) 2 mg SLOW IVP Q3H PRN PRN Reason: Pain Last Admin: 08/08/18 07:12 Dose: 2 mg Naloxone HCl (Narcan) 0.2 mg IV Q5MIN PRN PRN Reason: Opiate Reversal Ondansetron HCl (Zofran) 4 mg IVP Q6H PRN PRN Reason: Nausea/Vomiting Last Admin: 08/06/18 11:21 Dose: 4 mg Ondansetron HCl (Zofran) 4 mg IVP Q6H PRN PRN Reason: Nausea/Vomiting Pantoprazole Sodium (Protonix) 40 mg IVP Q12HR [facility] Last Admin: 08/08/18 08:37 Dose: 40 mg Phenylephrine HCl (Zacarias-Synephrine 0.5% Nasal [place]) 0 ml EA NARE Q4H PRN PRN Reason: Nasal Congestion Last Admin: 08/06/18 03:41 Dose: 1 spr Sodium Chloride (Flush - Normal Saline) 10 ml IVF Q12HR [facility] Last Admin: 08/08/18 08:38 Dose: 10 ml Sodium Chloride (Flush - Normal Saline) 10 ml IVF PRN PRN PRN Reason: Saline Flush Sodium Chloride (Normal Saline Pf) 10 ml FS PRN PRN PRN Reason: RECONSTITUTION Sodium Chloride ([place] Nasal [place] 0.65%) 0 ml EA NARE QID [facility] Last Admin: 08/08/18 09:48 Dose: Not Given
--- NOTE | 2018-08-08 11:02 | EKG ---
Test Reason : Blood Pressure : / mmHG Vent. Rate : 143 BPM Atrial Rate : 143 BPM P-R Int : 114 ms QRS Dur : 078 ms QT Int : 298 ms P-R-T Axes : 027 039 091 degrees QTc Int : 459 ms Sinus tachycardia When compared with ECG of 07-AUG-2018 07:03, (Unconfirmed) rate now higher abnormal Confirmed by DR. Darya DOWNEY ([id number]) on 08/08/2018 11:02:29 AM Referred By: HELENE Confirmed By:DR. Darya DOWNEY
--- NOTE | 2018-08-08 11:09 | EKG ---
Test Reason : WEAKNESS Blood Pressure : / mmHG Vent. Rate : 097 BPM Atrial Rate : 097 BPM P-R Int : 132 ms QRS Dur : 086 ms QT Int : 354 ms P-R-T Axes : 048 041 058 degrees QTc Int : 449 ms Normal sinus rhythm Normal ECG Confirmed by DEBBY PADRON M.D. ([id number]), content editor LATOSHA FREEMAN ([id number]) on 08/08/2018 11:08:32 AM Referred By: Confirmed By:DEBBY PADRON M.D.
--- NOTE | 2018-08-08 12:25 | DIS ---
DATE OF ADMISSION: 08/04/2018 DATE OF DISCHARGE: 08/08/2018 PRIMARY CARE PHYSICIAN: Jaren Ku MD DISCHARGE DISPOSITION: Hospice facility. PRIMARY DISCHARGE DIAGNOSES: 1. Small bowel obstruction. 2. Anemia due to acute blood loss. 3. Acute kidney failure. 4. Hypomagnesemia. SECONDARY DISCHARGE DIAGNOSES: 1. Peritoneal carcinomatosis. 2. Metastatic ovarian cancer. 3. Hypertension. 4. History of deep venous thrombosis and pulmonary embolism. 5. Normocytic normochromic anemia. 6. Severe physical deconditioning. PRIMARY PROCEDURE/OPERATION: Dr. Cortés performed laparotomy with lysis of adhesion for small-bowel obstruction. RADIOLOGICAL INVESTIGATION: Abdomen and pelvis CT scan showed small bowel obstruction, metastatic deposition in the peritoneum, fluid collection between dome of right lobe of liver and right hemidiaphragm. Small bowel x-ray. SIGNIFICANT LABORATORY DATA: Hemoglobin 7.7. Creatinine 1.36, magnesium 1.3. DISCHARGE MEDICATIONS: The patient is planned for discharge to Hospice for comfort care only. Her comfort care medicine will include, 1. Ativan as needed basis. 2. Morphine p.r.n. basis. 3. Zofran p.r.n. basis. 4. Pepcid p.r.n. basis. All these discharge medications for comfort care will be decided by Hospice team. CONTRAINDICATION: None. CODE STATUS: DNR. INPATIENT WAGE ANALYST: Oncology group, Dr. Cabrera was following while in hospital. Dr. Cortés was consulted for small-bowel obstruction. TEST RESULT PENDING ON DISCHARGE: None. ALLERGIES: NO KNOWN DRUG ALLERGIES. DISCHARGE PLAN: Posthospital, the patient is discharged for Hospice for comfort care only. HOSPITAL COURSE: A 67-year-old female who has ovarian malignancy with peritoneal carcinomatosis and poor physical deconditioning, who also has a history of DVT and PE and this time, she came to hospital with generalized weakness. She was having abdominal distention. She was not passing any gas. She was found with small-bowel obstruction. She was treated conservatively initially and Dr. Cortés was consulted. The patient had small bowel x-ray, which also showed persistent small-bowel obstruction and that is why, Dr. Cortés took her for surgery. Exploratory laparotomy was performed. Adhesion of lysis was performed. Even after that, the patient's condition did not improve. The patient's family member decided to proceed with comfort care only. She was made DNR and family member agreed with discharging her home with comfort care only. The patient expressed her wishes to be at home and Hospice team will help the patient at home for comfort care. At this point, based on family decision, the patient will be discharged to Hospice care for comfort care only. Her prognosis is extremely poor. I have seen this patient at bedside. I spoke with the family member at bedside and they all agreed with comfort care only today. Job ID: [id number]
== END 2018-08-08 16:22 | disposition hospice, home (50) | DRG 336 ==
LOC: ERS 16:30 → T4-A 19:23
PROVIDERS: ADMIT Hospitalist; ATTEND Hospitalist
PROC: 0DNW0ZZ Release Peritoneum, Open Approach (ICD-10-PCS; principal; 2018-08-04)
PROC: 0WJG0ZZ Inspection of Peritoneal Cavity, Open Approach (ICD-10-PCS; 2018-08-04)
DX: K56.50 Intestinal adhesions [bands], unspecified as to partial versus complete obstruction (principal); D62 Acute posthemorrhagic anemia; C56.9 Malignant neoplasm of unspecified ovary; C78.6 Secondary malignant neoplasm of retroperitoneum and peritoneum; E11.9 Type 2 diabetes mellitus without complications; I10 Essential (primary) hypertension; E78.5 Hyperlipidemia, unspecified; Z86.711 Personal history of pulmonary embolism; E87.6 Hypokalemia; E83.42 Hypomagnesemia; R04.0 Epistaxis
CPT/HCPCS: 36415; 36416; 36430; 74177; 74250; 80048; 80053; 80069; 83735; 84100; 84484; 85025; 86304; 86850; 86900; 86901; 90471; 90670; 93005; 93010; 96360; C9113; G0009; J0131; J1642; J1650; J1885; J2001; J2060; J2270; J2274; J2405; J2704; J3010; J3475; J3480; J3490; J7070; P9016; Q0162; Q9963; Q9967